=== PATIENT | female | born 1960 | race Caucasian/White ===

== ENCOUNTER 2016-08-30 08:35 | Outpatient (CLI) | payer BC | END 2016-08-30 08:36 | disposition home or self-care (01) | DX: R79.0 Abnormal level of blood mineral (principal); E88.09 Other disorders of plasma-protein metabolism, not elsewhere classified ==

== ENCOUNTER 2017-03-14 11:26 | Emergency (ER) | payer BC ==
[2017-03-14 11:52] VITALS: BP 124/74
[2017-03-14] MEDS ORDERED: KETOROLAC 60 MG/2 ML VIAL IM STA (12:20)
--- NOTE | 2017-03-14 12:22 | ED Physician Documentation ---
PD HPI BACK INJURY - Stated complaint Stated Complaint: BACK INJ - History obtained from History obtained from: Patient - History of Present Illness Location: Lower Type of injury: Fall (onto 2x4's) Where injury occurred: Home Timing - onset: How many weeks ago (1) Timing - duration: Weeks (1) Timing - details: Gradual onset Pain level max: 8 Pain level now: 8 Quality: Pain, Spasm, Aching, Dull Improved by: Rest Worsened by: Moving, Palpating Associated symptoms: No: Fever, Weakness, Numbness, Incontinent of urine, Unable to urinate, Hematuria, Incontinent of stool Contributing factors: No: Anticoagulated, Prior back surgery, Prosthetic joint, Other injury, Work related Similar symptoms before: Has not had sx before Recently seen: Not recently seen Review of Systems Constitutional: denies: Fever, Chills Nose: denies: Rhinorrhea / runny nose, Congestion Throat: denies: Sore throat Cardiac: denies: Chest pain / pressure Respiratory: denies: Cough GI: denies: Nausea, Vomiting, Diarrhea : denies: Dysuria, Frequency, Hesitancy, Unable to Void, Incontinent Skin: denies: Rash Musculoskeletal: denies: Neck pain Neurologic: denies: Focal weakness, Numbness, Headache, Head injury, LOC PD PAST MEDICAL HISTORY - Past Medical History Cardiovascular: Hypertension, High cholesterol, Atrial fibrillation Respiratory: Sleep apnea, CPAP use Endocrine/Autoimmune: Type 2 diabetes GI: None : None HEENT: None Psych: Depression Musculoskeletal: None Derm: None - 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 - Present Medications Home Medications: Ambulatory Orders Medication Instructions Recorded Confirmed Aspirin [Aspir-Anya] 325 mg PO DAILY 02/01/15 03/14/17 Clonazepam [Klonopin] 2 mg PO DAILY 02/01/15 03/14/17 Duloxetine HCl 60 mg PO DAILY 02/01/15 03/14/17 Lisinopril 2.5 mg PO DAILY 02/01/15 03/14/17 Metformin HCl [Glucophage] 850 mg PO BID 02/01/15 03/14/17 Omeprazole [Prilosec] 20 mg PO BID 02/01/15 03/14/17 Pravastatin Sodium 20 mg PO DAILY 02/01/15 03/14/17 FLUoxetine [PROzac] 20 mg PO DAILY 03/14/17 03/14/17 Metoprolol Succinate 50 mg PO DAILY 03/14/17 03/14/17 diazePAM [Valium] 5 - 10 mg PO TID PRN #20 tablet 03/14/17 - Allergies Allergies/Adverse Reactions: Allergies Allergy/AdvReac Type Severity Reaction Status Date / Time amoxicillin trihydrate * Allergy Unknown Verified 03/14/17 11:52 [From Augmentin] potassium clavulanate * Allergy Unknown Verified 03/14/17 11:52 [From Augmentin] PD ED PE NORMAL - Vitals Vital signs reviewed: Yes - General General: Alert and oriented X 3, No acute distress - Neck Neck: Supple, no meningeal sign, No bony TTP - Cardiac Cardiac: RRR, No murmur - Respiratory Respiratory: No respiratory distress, Clear bilaterally - Abdomen Abdomen: Soft, Non tender - Back Back: No spinal TTP, Other (Paraspinal muscle spasm low lumbar bilaterally. No midline tenderness to palpation or percussion) - Derm Derm: Warm and dry - Extremities Extremities: No tenderness to palpate, No edema, No calf tenderness / cord, Other (normal bilateral lower extremity patellar and ankle jerk reflexes. Normal great toe extension bilaterally) - Neuro Neuro: Alert and oriented X 3, No motor deficit, No sensory deficit, Normal speech - Psych Psych: Normal mood, Normal affect Results - Vitals Vitals: Vital Signs - 24 hr 03/14/17 11:50 Temperature 37.2 C Heart Rate 75 Respiratory 16 Rate Blood Pressure 124/74 O2 Saturation 100 Oxygen O2 Source Room air PD MEDICAL DECISION MAKING - ED course Complexity details: re-evaluated patient, considered differential (no cauda equina, no spinal epidural abscess, no fracture, no aortic dissection or evidence of aneursym rupture), d/w patient ED course: Patient is a 56-year-old female who presents to the emergency department with low back pain after falling onto a pile of 2x4s last week. Has been taking Motrin at home, but is still having spasming. States Flexeril and Valium has worked for her in the past. We will trial her on Valium. No evidence of lumbar spine fracture. No midline tenderness. No neurological deficits. Will hold x-rays at this time and treat conservatively. Patient counseled regarding signs and symptoms for which I believe and urgent re-evaluation would be necessary. Patient with good understanding of and agreement to plan and is comfortable going home at this time This document was made in part using voice recognition software. While efforts are made to proofread this document, sound alike and grammatical errors may occur. Feels better after Toradol. Departure - Departure Disposition: 01 Home, Self Care Clinical Impression: Back strain Qualifiers: Encounter type: initial encounter Qualified Code(s): S39.012A - Strain of muscle, fascia and tendon of lower back, initial encounter Condition: Good Instructions: ED Sprain Strain Lumbar Follow-Up: Ivette Leblanc PA-C [Primary Care Provider] - Within 1 week Prescriptions: diazePAM [Valium] 5 - 10 mg PO TID PRN #20 tablet PRN Reason: Spasms Comments: Return if you worsen. This should improve over the next few days. Do not drive or operate heavy machinery while taking the Valium.
[2017-03-14] MEDS ORDERED: KETOROLAC 60 MG/2 ML VIAL ONE (12:26)
== END 2017-03-14 12:45 | disposition home or self-care (01) ==
LOC: ED 11:26
DX: S39.012A Strain of muscle, fascia and tendon of lower back, initial encounter (principal); W18.30XA Fall on same level, unspecified, initial encounter; W22.09XA Striking against other stationary object, initial encounter; Y93.H2 Activity, gardening and landscaping; Y92.007 Garden or yard of unspecified non-institutional (private) residence as the place of occurrence of the external cause; I10 Essential (primary) hypertension; E11.9 Type 2 diabetes mellitus without complications; Z79.84 Long term (current) use of oral hypoglycemic drugs; Z79.82 Long term (current) use of aspirin
CPT/HCPCS: 96372; 99283

== ENCOUNTER 2017-03-20 19:40 | Emergency (ER) | payer BC ==
[2017-03-20] MEDS ORDERED: KETOROLAC 60 MG/2 ML VIAL IM STA (20:18)
[2017-03-20] MEDS ORDERED: DEXAMETHASONE 10 MG/ML VIAL PO STA (20:18)
[2017-03-20] MEDS ORDERED: DEXAMETHASONE 10 MG/ML VIAL ONE (20:51)
[2017-03-20] MEDS ORDERED: KETOROLAC 60 MG/2 ML VIAL ONE (20:51)
[2017-03-20] MEDS ORDERED: CHERRY SYRUP 10 ML UDC PO ONE (20:51)
--- NOTE | 2017-03-20 21:12 | XRAY Preliminary Report ---
Exam: XR SI Joints IMPRESSION: Normal sacroiliac joint radiography. [facility] SITE ID: [id number]
--- NOTE | 2017-03-20 21:14 | XRAY Report ---
EXAM: SACROILIAC JOINT RADIOGRAPHY EXAM DATE: 03/20/2017 08:36 PM. CLINICAL HISTORY: Right sided si pain after falling. COMPARISON: None. TECHNIQUE: 3 views. FINDINGS: Bones: Normal. No fracture or bone lesion. Joints: The sacroiliac joints are normal. Soft Tissues: Normal. IMPRESSION: Normal sacroiliac joint radiography. [facility] Referring Provider Line: [phone] SITE ID: [id number]
--- NOTE | 2017-03-20 21:19 | ED Physician Documentation ---
PD HPI BACK PAIN - Stated complaint Stated Complaint: BACK PX - Chief complaint Chief Complaint: Back Pain - History obtained from History obtained from: Patient - History of Present Illness Timing - onset: How many weeks ago (1) Timing - details: Abrupt onset Location: Lower, Right Quality: Pain, Spasm, Aching Associated symptoms: No: Hematuria Worsened by: Movement Contributing factors: Trauma Similar symptoms before: Work up / diagnostics, Treatment Recently seen: Emergency Dept - Additional information Additional information: Patient is a 56 year old female presenting to the emergency department for low back pain radiating down her right leg. patient states that she fell about a week ago, at that time she was given toradol and valium. Patient states that her pain has persisted so she came in for evaluation. Patient denies any new trauma, no fevers, no chills and no neurological symptoms. Review of Systems Constitutional: denies: Fever, Chills, Myalgias Ears: denies: Ear pain, Drainage/discharge Nose: denies: Congestion Throat: denies: Dental pain / toothache, Oral lesions / sores Cardiac: denies: Chest pain / pressure GI: denies: Abdominal Pain, Abdominal Swelling, Nausea, Vomiting, Constipation, Diarrhea : denies: Dysuria, Frequency, Unable to Void, Incontinent Skin: denies: Rash, Lesions Musculoskeletal: reports: Back pain, Extremity pain Neurologic: denies: Generalized weakness, Focal weakness, Numbness Immunocompromised: denies: Immunocompromised PD PAST MEDICAL HISTORY - Past Medical History Past Medical History: Yes Cardiovascular: Hypertension, High cholesterol, Atrial fibrillation Respiratory: Sleep apnea, CPAP use Endocrine/Autoimmune: Type 2 diabetes GI: None : None HEENT: None Psych: Depression Musculoskeletal: None Derm: None - Past Surgical History 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 - Present Medications Home Medications: Ambulatory Orders Medication Instructions Recorded Confirmed Aspirin [Aspir-Anya] 325 mg PO DAILY 02/01/15 03/20/17 Clonazepam [Klonopin] 2 mg PO DAILY 02/01/15 03/20/17 Duloxetine HCl 60 mg PO DAILY 02/01/15 03/20/17 Lisinopril 2.5 mg PO DAILY 02/01/15 03/20/17 Metformin HCl [Glucophage] 850 mg PO BID 02/01/15 03/20/17 Omeprazole [Prilosec] 20 mg PO BID 02/01/15 03/20/17 Pravastatin Sodium 20 mg PO DAILY 02/01/15 03/20/17 FLUoxetine [PROzac] 20 mg PO DAILY 03/14/17 03/20/17 Metoprolol Succinate 50 mg PO DAILY 03/14/17 03/20/17 diazePAM [Valium] 5 - 10 mg PO TID PRN #20 tablet 03/14/17 03/20/17 Cyclobenzaprine [Flexeril] 10 mg PO DAILY #10 tablet 03/20/17 - Allergies Allergies/Adverse Reactions: Allergies Allergy/AdvReac Type Severity Reaction Status Date / Time amoxicillin trihydrate * Allergy Unknown Verified 03/20/17 19:53 [From Augmentin] potassium clavulanate * Allergy Unknown Verified 03/20/17 19:53 [From Augmentin] - Social History Does the pt smoke?: No Smoking Status: Never smoker Does the pt have substance abuse?: No PD ED PE NORMAL - Vitals Vital signs reviewed: Yes - General General: Alert and oriented X 3, No acute distress - HEENT HEENT: Atraumatic - Cardiac Cardiac: RRR, No murmur - Respiratory Respiratory: No respiratory distress - Abdomen Abdomen: Soft, Non tender, Non distended - Derm Derm: Normal color, Warm and dry, No rash - Neuro Neuro: Alert and oriented X 3, No motor deficit, No sensory deficit, Normal speech - Psych Psych: Normal mood PD ED PE EXPANDED - Extremities Extremities: Right hip (tenderness over right SI joint, ) - Neuro Neuro: Normal Sensation, Normal gait, Other (straight leg only positive on right ). No: Abnormal sensation Results - Vitals Vitals: Vital Signs - 24 hr 03/20/17 03/20/17 19:46 21:31 Temperature 36.4 C L Heart Rate 67 60 Respiratory 20 18 Rate Blood Pressure 110/65 102/67 O2 Saturation 98 99 Oxygen O2 Source Room air - Rads (name of study) si joint Radiology: Final report received (no acute abnormality) PD MEDICAL DECISION MAKING - ED course Complexity details: reviewed old records, reviewed results, re-evaluated patient , considered differential, d/w patient ED course: Patient was seen and examined at bedside. patient was treated with toradol and decadron. imaging was ordered. When patient returned the results were reviewed. there was no acute fracture or dislocation or bony abnormality. Patient had no neurological deficits and required no further work up at this time. patient was stable for discharge with outpatient follow up. Departure - Departure Disposition: 01 Home, Self Care Clinical Impression: Sciatica Condition: Good Instructions: ED Sciatica, ED Exercises Lumbar Muscles Follow-Up: Ivette Leblanc PA-C [Primary Care Provider] - As Needed Prescriptions: Cyclobenzaprine [Flexeril] 10 mg PO DAILY #10 tablet Comments: Your diagnostics today were within normal limits. there was no acute fracture or dislocation. It is important to try to stay active and work on stretching your lower back and upper leg. You can try ice or heat as well as motrin and tylenol. You can take the flexeril at night but do not take it with any sedatives, including alcohol or drive while taking it. You should follow up with your pmd for re-evaluation. Discharge Date/Time: 03/20/17 21:31
[2017-03-20 21:32] VITALS: BP 102/67
== END 2017-03-20 21:31 | disposition home or self-care (01) ==
LOC: ED 19:40
DX: M54.31 Sciatica, right side (principal); I10 Essential (primary) hypertension; Z79.82 Long term (current) use of aspirin
CPT/HCPCS: 72202; 96372; 99283; A9270

== ENCOUNTER 2017-04-01 11:22 | Outpatient (CLI) | payer BC | END 2017-04-01 11:23 | disposition home or self-care (01) | LOC: LAB.R 11:22 | PROVIDERS: ATTEND Nurse Practitioner Primary Care | DX: N39.0 Urinary tract infection, site not specified (principal) | CPT/HCPCS: 87086 ==

== ENCOUNTER 2017-09-08 10:18 | Outpatient (CLI) | payer BC ==
--- NOTE | 2017-09-09 20:05 | Mammography Report ---
DATE OF SERVICE: 09/08/2017 DIGITAL SCREENING MAMMOGRAM: 09/08/2017 CLINICAL INDICATION: A 56-year-old with history of late childbearing for screening. COMPARISON: 06/2016, 09/2014, 07/2013, 02/2012, 01/2011, 11/2009. TECHNIQUE: Routine CC and MLO projections were obtained of the breasts. The breasts demonstrate scattered fibroglandular densities bilaterally. Coarse and punctate, typically benign calcifications are present. No suspicious masses, clustered microcalcifications, or regions of architectural distortion are identified. IMPRESSION: Benign findings. RECOMMENDATIONS: Routine annual screening unless otherwise clinically indicated. BIRADS category 2 benign findings. STANDARD QUALIFYING STATEMENTS 1. This examination was reviewed with the aid of Computed-Aided Detection (CAD). 2. A negative or benign imaging report should not delay biopsy if clinically suspicious findings are present. Consider surgical consultation if warranted. More than 5% of cancers are not identified by imaging. 3. Dense breasts may obscure an underlying neoplasm. TD: 09/09/2017 21:04
== END 2017-09-08 10:19 | disposition home or self-care (01) ==
LOC: DI 10:18
PROVIDERS: ATTEND Physician Assistant Medical
DX: Z12.31 Encounter for screening mammogram for malignant neoplasm of breast (principal)
CPT/HCPCS: 77067

== ENCOUNTER 2017-10-06 13:15 | Outpatient (CLI) | payer BC | END 2017-10-06 13:16 | disposition home or self-care (01) | LOC: SC 13:15 | PROVIDERS: ATTEND Nurse Practitioner Family | DX: G47.33 Obstructive sleep apnea (adult) (pediatric) (principal) | CPT/HCPCS: 99212; 99214 ==

== ENCOUNTER 2017-10-13 08:59 | Outpatient (CLI) | payer BC ==
[2017-10-13 18:24] LABS: BASOPHILS # (AUTO) 0.1 10^3/uL (0.0-0.1); EOSINOPHILS # (AUTO) 0.1 10^3/uL (0.0-0.7); EOSINOPHILS % (AUTO) 1.3 %; HGB - HEMOGLOBIN 11.5 g/dL (12.0-16.0); LYMPHOCYTES # (AUTO) 2.9 10^3/uL (1.5-3.5); LYMPHOCYTES % (AUTO) 28.5 %; MEAN CORPUSCULAR HEMOGLOBIN 26.1 pg (27.0-31.0); MEAN CORPUSCULAR HGB CONC 31.8 g/dL (32.0-36.0); MEAN CORPUSCULAR VOLUME 82.1 fL (81.0-99.0); MEAN PLATELET VOLUME 7.1 fL (7.9-10.8); MONOCYTES # (AUTO) 0.6 10^3/uL (0.0-1.0); MONOCYTES % (AUTO) 5.9 %; NEUTROPHILS # (AUTO) 6.4 10^3/uL (1.5-6.6); NEUTROPHILS % (AUTO) 63.3 %; PLT - PLATELET COUNT 482 10^3/uL (130-450); RED BLOOD COUNT 4.42 10^6/uL (4.20-5.40); RED CELL DISTRIBUTION WIDTH 14.7 % (12.0-15.0); WHITE BLOOD COUNT 10.1 x10^3/uL (4.8-10.8)
[2017-10-13 18:52] LABS: ALBUMIN 3.7 g/dL (3.2-5.5); ALBUMIN/GLOBULIN RATIO 1.1 (1.0-2.2); ALKALINE PHOSPHATASE 78 IU/L (42-121); ALT ALANINE AMINOTRANSFERASE 23 IU/L (10-60); AST ASPARTATE AMINOTRANSFERASE 25 IU/L (10-42); BILIRUBIN,TOTAL 0.4 mg/dL (0.2-1.0); BUN - BLOOD UREA NITROGEN 15 mg/dL (6-20); CALCIUM 8.7 mg/dL (8.5-10.3); CARBON DIOXIDE - CO2 22 mmol/L (21-32); CHLORIDE 103 mmol/L (101-111); CHOL/HDL RATIO 2.8 (<4.4); CHOLESTEROL 163 mg/dL; GFR - MDRD 57 (>89); GLUCOSE 91 mg/dL (70-100); HDL CHOLESTEROL 58 mg/dL; LDL CHOLESTEROL,CALCULATED 74 mg/dL; LDL/HDL RATIO 1.3 (<4.4); SODIUM 137 mmol/L (135-145); TOTAL PROTEIN 7.2 g/dL (6.7-8.2); VLDL CHOLESTEROL 31 mg/dL
[2017-10-13 19:37] LABS: HEMOGLOBIN A1C 0.49 g/dL; HEMOGLOBIN A1C % 5.9 % (4.6-6.2)
== END 2017-10-13 09:00 | disposition home or self-care (01) ==
LOC: LAB.F 08:59
PROVIDERS: ATTEND Internal Medicine
DX: Z00.00 Encounter for general adult medical examination without abnormal findings (principal); R60.9 Edema, unspecified; E55.9 Vitamin D deficiency, unspecified; Z79.899 Other long term (current) drug therapy; E11.9 Type 2 diabetes mellitus without complications; I48.0 Paroxysmal atrial fibrillation
CPT/HCPCS: 36415; 80053; 80061; 82306; 83036; 83721; 84443; 85025

== ENCOUNTER 2018-03-04 08:54 | Emergency (ER) | payer BC ==
--- NOTE | 2018-03-04 09:25 | ED Physician Documentation ---
History of Present Illness - Stated complaint Stated Complaint: LIGHTHEADED/HIGH PULSE - Chief complaint Chief Complaint: Cardiac - History obtained from History obtained from: Patient - History of Present Illness Timing: Today - Additonal information Additional information: 57-year-old female got ready for work this morning and on her way walking to work she developed lightheadedness and dizziness associated with palpitations and some dyspnea. She recognizes his symptoms similar to what she has had previously with atrial fibrillation and has come to the hospital. Laying down on the gurney she feels much improved but continues to have a rapid heart rate. She states that she does not know of any specific trigger for this episode of atrial fibrillation. She has not been ill recently. She does note a lot of stress in her life and she believes this is likely the culprit. She denies any alcohol use recently or URI symptoms. Review of Systems Constitutional: denies: Fever Eyes: denies: Decreased vision Ears: denies: Ear pain Nose: denies: Rhinorrhea / runny nose, Congestion Throat: denies: Sore throat Cardiac: reports: Palpitations. denies: Chest pain / pressure Respiratory: reports: Dyspnea. denies: Cough GI: denies: Abdominal Pain, Nausea, Vomiting : denies: Dysuria, Frequency Skin: denies: Rash Musculoskeletal: denies: Neck pain, Back pain, Extremity pain Neurologic: denies: Generalized weakness, Focal weakness, Numbness Psychiatric: reports: Depressed. 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 - Present Medications Home Medications: Ambulatory Orders Medication Instructions Recorded Confirmed Duloxetine HCl 60 mg PO DAILY 02/01/15 05/22/17 Metformin HCl [Glucophage] 850 mg PO BID 02/01/15 05/22/17 Omeprazole [Prilosec] 20 mg PO BID 02/01/15 05/22/17 Pravastatin Sodium 20 mg PO DAILY 02/01/15 05/22/17 clonazePAM [Klonopin] 2 mg PO DAILY 02/01/15 05/22/17 Nitroglycerin [Nitrostat] 0.4 mg SL Q5MIN PRN #100 tablet 05/23/17 diltiaZEM CD [Cardizem Cd] 120 mg PO DAILY #30 capsule 05/23/17 Apixaban [Eliquis] 5 mg PO 03/04/18 Flecainide [Tambocar] 50 mg PO Q12H 03/04/18 03/04/18 Fluoxetine HCl [Prozac] 10 mg 03/04/18 Metoprolol Succinate 50 mg PO DAILY #20 tab.er.24h 03/04/18 - Allergies Allergies/Adverse Reactions: Allergies Allergy/AdvReac Type Severity Reaction Status Date / Time amoxicillin trihydrate * Allergy Unknown Verified 03/04/18 09:15 [From Augmentin] potassium clavulanate * Allergy Unknown Verified 03/04/18 09:15 [From Augmentin] - Social History Does the pt smoke?: No Smoking Status: Never smoker Does the pt have substance abuse?: No - POLST Patient has POLST: No POLST Status: Full Code PD ED PE NORMAL - Vitals Vital signs reviewed: Yes (tachy and hypertensive) - General General: Alert and oriented X 3, Well developed/nourished, Other (mildly anxious ) - HEENT HEENT: Atraumatic, PERRL, EOMI - Neck Neck: Supple, no meningeal sign, No bony TTP - Cardiac Cardiac: No murmur, Other (tachy and irregular ) - Respiratory Respiratory: No respiratory distress, Clear bilaterally - Abdomen Abdomen: Soft, Non tender - Back Back: No CVA TTP, No spinal TTP - Derm Derm: Normal color, Warm and dry, No rash - Extremities Extremities: No deformity, No edema - Neuro Neuro: Alert and oriented X 3, credit investigator 2-12 intact, No motor deficit, No sensory deficit, Normal speech Eye Opening: Spontaneous Motor: Obeys Commands Verbal: Oriented GCS Score: 15 - Psych Psych: Normal mood, Normal affect Results - Vitals Vitals: Vital Signs - 24 hr 03/04/18 03/04/18 03/04/18 08:59 09:43 11:24 Temperature 36.4 C L Heart Rate 123 H 115 H 77 Respiratory 18 16 16 Rate Blood Pressure 140/97 H 133/90 H 112/69 O2 Saturation 97 95 03/04/18 03/04/1803/04/18 13:16 14:13 14:15 Temperature Heart Rate 118 H 130 H 109 H Respiratory 26 H 25 H 22 Rate Blood Pressure 142/82 H 134/97 H 117/83 H O2 Saturation 94 95 94 03/04/18 03/04/18 03/04/18 14:16 14:50 14:57 Temperature Heart Rate 100 90 83 Respiratory 22 18 16 Rate Blood Pressure 135/85 H 119/88 H 123/65 O2 Saturation 97 97 98 Oxygen O2 Source Room air - EKG (time done) 0903 Rate: Rate (enter#) (129) Rhythm: Atrial fibrillation Compare to prior EKG: Changed from prior EKG (SPT 05-22-17 ST depression has occurred. ) Computer interpretation: Agree with computer - Labs Labs: Laboratory Tests 03/04/18 03/04/18 03/04/18 09:30 09:30 09:30 WBC 9.1 RBC 4.34 Hgb 11.4 L Hct 34.7 L MCV 79.9 L MCH 26.2 L MCHC 32.8 RDW 14.8 Plt Count 501 H MPV 6.5 L Neut # (Auto) 5.3 Lymph # (Auto) 3.0 [place] # (Auto) 0.6 Eos # (Auto) 0.1 Baso # (Auto) 0.1 Absolute Nucleated RBC 0.00 Nucleated RBC % 0.0 Sodium 138 Potassium 3.8 Chloride 105 Carbon Dioxide 21 Anion Gap 12.0 BUN 13 Creatinine 0.9 Estimated GFR (MDRD) 65 L Glucose 125 H Calcium 8.9 Total Bilirubin 0.4 AST 27 ALT 22 Alkaline Phosphatase 83 Troponin I < 0.04 Total Protein 7.1 Albumin 3.2 Globulin 3.9 Albumin/Globulin Ratio 0.8 L Lipase 35 Urine Color Urine Clarity Urine pH Ur Specific [place] Urine Protein Urine Glucose (UA) Urine Ketones Urine Occult Blood Urine Nitrite Urine Bilirubin Urine Urobilinogen Ur Leukocyte Esterase Ur Microscopic Review Urine Culture Comments 03/04/18 10:55 WBC RBC Hgb Hct MCV MCH MCHC RDW Plt Count MPV Neut # (Auto) Lymph # (Auto) [place] # (Auto) Eos # (Auto) Baso # (Auto) Absolute Nucleated RBC Nucleated RBC % Sodium Potassium Chloride Carbon Dioxide Anion Gap BUN Creatinine Estimated GFR (MDRD) Glucose Calcium Total Bilirubin AST ALT Alkaline Phosphatase Troponin I Total Protein Albumin Globulin Albumin/Globulin Ratio Lipase Urine Color YELLOW Urine Clarity CLEAR Urine pH 6.0 Ur Specific [place] 1.025 Urine Protein NEGATIVE Urine Glucose (UA) NEGATIVE Urine Ketones NEGATIVE Urine Occult Blood NEGATIVE Urine Nitrite NEGATIVE Urine Bilirubin NEGATIVE Urine Urobilinogen 0.2 (NORMAL) Ur Leukocyte Esterase NEGATIVE Ur Microscopic Review NOT INDICATED Urine Culture Comments NOT INDICATED Procedures - IVC sono (time) 1100 Bedside IVC sono: IVC measures (cm) (0.98), IVC collapsed c insp (cm) (complete) , Dehydration (est 1 liter deficit) PD MEDICAL DECISION MAKING - ED course Complexity details: reviewed results, re-evaluated patient, considered differential, d/w patient ED course: 57-year-old female with A. fib with RVR is administered diltiazem intravenously 20 mg with reduction in her heart rate and conversion to sinus rhythm. This did not hold long and she required a second 25 mg dose as well. This did slow her rate but this sped back up. She was eventually administered metoprolol 5 mg 2 doses intravenously. This slowed her heart and she stayed stable. She is requested a prescription for the metoprolol succinate. She has been on this medication previously and stopped for side effects of the medication causing some fatigue. She would rather use the metoprolol then be placed into the hospital on diltiazem drip. - Sepsis Event Vital Signs: Vital Signs - 24 hr 03/04/18 03/04/18 03/04/18 08:59 09:43 11:24 Temperature 36.4 C L Heart Rate 123 H 115 H 77 Respiratory 18 16 16 Rate Blood Pressure 140/97 H 133/90 H 112/69 O2 Saturation 97 95 03/04/18 03/04/18 03/04/18 13:16 14:13 14:15 Temperature Heart Rate 118 H 130 H 109 H Respiratory 26 H 25 H 22 Rate Blood Pressure 142/82 H 134/97 H 117/83 H O2 Saturation 94 95 94 03/04/18 03/04/18 03/04/18 14:16 14:50 14:57 Temperature Heart Rate 100 90 83 Respiratory 22 18 16 Rate Blood Pressure 135/85 H 119/88 H 123/65 O2 Saturation 97 97 98 Oxygen O2 Source Room air Departure - Departure Disposition: 01 Home, Self Care Clinical Impression: Atrial fibrillation with RVR Condition: Stable Instructions: ED Afib Follow-Up: Good,Ivette B, PA-C [Primary Care Provider] - Prescriptions: Metoprolol Succinate 50 mg PO DAILY #20 tab.er.24h Discharge Date/Time: 03/04/18 15:15
[2018-03-04] MEDS ORDERED: diltiaZEM INJ 5 MG/ML VIAL IVP STA ×3 (09:26→13:07)
[2018-03-04 09:47] LABS: BASOPHILS # (AUTO) 0.1 10^3/uL (0.0-0.1); BASOPHILS % (AUTO) 1.5 %; EOSINOPHILS # (AUTO) 0.1 10^3/uL (0.0-0.7); EOSINOPHILS % (AUTO) 1.6 %; HGB - HEMOGLOBIN 11.4 g/dL (12.0-16.0); LYMPHOCYTES % (AUTO) 32.7 %; MEAN CORPUSCULAR HEMOGLOBIN 26.2 pg (27.0-31.0); MEAN CORPUSCULAR HGB CONC 32.8 g/dL (32.0-36.0); MEAN CORPUSCULAR VOLUME 79.9 fL (81.0-99.0); MEAN PLATELET VOLUME 6.5 fL (7.9-10.8); MONOCYTES # (AUTO) 0.6 10^3/uL (0.0-1.0); MONOCYTES % (AUTO) 6.4 %; NEUTROPHILS # (AUTO) 5.3 10^3/uL (1.5-6.6); NEUTROPHILS % (AUTO) 57.8 %; PLT - PLATELET COUNT 501 10^3/uL (130-450); RED BLOOD COUNT 4.34 10^6/uL (4.20-5.40); RED CELL DISTRIBUTION WIDTH 14.8 % (12.0-15.0); WHITE BLOOD COUNT 9.1 x10^3/uL (4.8-10.8)
[2018-03-04] MEDS ORDERED: MAGNESIUM SULFATE 1 GM/2 ML VIAL IVP STA (09:54)
[2018-03-04 10:01] LABS: ALBUMIN 3.2 g/dL (3.2-5.5); ALBUMIN/GLOBULIN RATIO 0.8 (1.0-2.2); BILIRUBIN,TOTAL 0.4 mg/dL (0.2-1.0); CALCIUM 8.9 mg/dL (8.5-10.3); CREATININE 0.9 mg/dL (0.4-1.0); TOTAL PROTEIN 7.1 g/dL (6.7-8.2)
[2018-03-04] MEDS ORDERED: MAGNESIUM SULFATE 1 GM in SODIUM CHLORIDE 0.9% 50 ML IV ONE (11:00)
[2018-03-04 11:04] LABS: BILIRUBIN,URINE NEGATIVE (NEGATIVE); CLARITY,URINE CLEAR (CLEAR); GLUCOSE, URINE (UA) NEGATIVE (NEGATIVE); KETONES,URINE (UA) NEGATIVE (NEGATIVE); LEUKOCYTE ESTERASE, URINE NEGATIVE (NEGATIVE); NITRITE,URINE NEGATIVE (NEGATIVE); OCCULT BLOOD,URINE NEGATIVE (NEGATIVE); PROTEIN,URINE NEGATIVE (NEGATIVE); UROBILINOGEN,URINE 0.2 (NORMAL) E.U./dL (NORMAL)
[2018-03-04] MEDS ORDERED: SODIUM CHLORIDE 0.9% 1,000 ML IV ONE (11:08)
[2018-03-04] MEDS ORDERED: METOPROLOL 5 MG/5 ML VIAL IVP STA (14:03)
[2018-03-04] MEDS: METOPROLOL 5 MG/5 ML VIAL IVP STA (14:47)
[2018-03-04 14:57] VITALS: BP 123/65
== END 2018-03-04 15:15 | disposition home or self-care (01) ==
LOC: ED 08:54
DX: I48.91 Unspecified atrial fibrillation (principal); I48.92 Unspecified atrial flutter; I10 Essential (primary) hypertension; E78.00 Pure hypercholesterolemia, unspecified; E86.0 Dehydration
CPT/HCPCS: 36415; 80053; 81003; 83690; 84484; 85025; 93005; 96365; 96375; 96376; 99284; J7040; 81001; 87086

== ENCOUNTER 2018-10-11 09:43 | Emergency (ER) | payer BC ==
[2018-10-11 09:48] VITALS: BP 143/95
[2018-10-11] MEDS ORDERED: DEXAMETHASONE 10 MG/ML VIAL PO STA (10:24)
[2018-10-11] MEDS ORDERED: IPRATROPIUM/ALBUTEROL 3 ML NEB INH STA (10:24)
--- NOTE | 2018-10-11 10:27 | ED Physician Documentation ---
PD HPI URI - Stated complaint Stated Complaint: SOA - Chief complaint Chief Complaint: Resp - History obtained from History obtained from: Patient, Family - History of Present Illness Timing - onset: How many days ago (5) Timing duration: Days (5) Timing details: Gradual onset, Still present Associated symptoms: Nasal congestion, Rhinorrhea, Sore throat, Dry cough, Dyspnea Improves by: Rest, Medication Worsened by: Activity Similar symptoms before: Diagnosis (bronchitis) Recently seen: Not recently seen - Additional information Additional information: 58-year-old female relates that she has had 2 prior respiratory illnesses since April of this year both lasting about 3 weeks and both with cough and congestion. Those both resolved. Over the last 5 days she has developed a cough and congestion and when she got short of breath climbing up the stairs today she felt it light to come to the emergency department. She has used an inhaler previously she does not currently have an inhaler. Review of Systems Constitutional: denies: Fever, Chills Eyes: denies: Decreased vision Ears: denies: Ear pain Nose: reports: Rhinorrhea / runny nose, Congestion Throat: denies: Sore throat Cardiac: denies: Chest pain / pressure, Palpitations Respiratory: reports: Dyspnea, Cough, Wheezing GI: denies: Abdominal Pain, Nausea, Vomiting : denies: Dysuria, Frequency PD PAST MEDICAL HISTORY - Past Medical History Cardiovascular: Hypertension, High cholesterol, Atrial fibrillation, Other Respiratory: Sleep apnea, CPAP use Endocrine/Autoimmune: Other GI: None, GERD, Hiatal hernia : None, Other HEENT: None Psych: Depression Musculoskeletal: None, Osteoarthritis Derm: None - Past Surgical History 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 - Present Medications Home Medications: Ambulatory Orders Medication Instructions Recorded Confirmed Duloxetine HCl 60 mg PO DAILY 02/01/15 10/11/18 Metformin HCl [Glucophage] 850 mg PO BID 02/01/15 10/11/18 Omeprazole [Prilosec] 20 mg PO BID 02/01/15 10/11/18 Pravastatin Sodium 20 mg PO DAILY 02/01/15 10/11/18 clonazePAM [Klonopin] 2 mg PO DAILY 02/01/15 10/11/18 Nitroglycerin [Nitrostat] 0.4 mg SL Q5MIN PRN #100 tablet 05/23/17 10/11/18 [id number] CD [Cardizem Cd] 120 mg PO DAILY #30 capsule 05/23/17 10/11/18 Apixaban [Eliquis] 5 mg PO DAILY 03/04/18 10/11/18 Flecainide [Tambocar] 50 mg PO Q12H 03/04/18 10/11/18 Fluoxetine HCl [Prozac] 10 mg PO DAILY 03/04/18 10/11/18 Albuterol Sulf [Ventolin Hfa 1 - 2 puffs INH Q4HR PRN #1 inhaler 10/11/18 Inhaler] Cefdinir 300 mg PO BID #20 capsule 10/11/18 - Allergies Allergies/Adverse Reactions: Allergies Allergy/AdvReac Type Severity Reaction Status Date / Time amoxicillin trihydrate * Allergy Unknown Verified 03/04/18 09:15 [From Augmentin] potassium clavulanate * Allergy Unknown Verified 10/11/18 09:48 [From Augmentin] - Social History Does the pt smoke?: No Smoking Status: Never smoker Does the pt have substance abuse?: No - POLST Patient has POLST: No POLST Status: Full Code PD ED PE NORMAL - Vitals Vital signs reviewed: Yes (tachy and hypertensive) - General General: Alert and oriented X 3, No acute distress, Well developed/nourished - HEENT HEENT: Atraumatic, PERRL, EOMI, Pharynx benign, Other (The left TM is clear the right is inflamed with distortion of the landmarks. dry mucous membranes ) - Neck Neck: Supple, no meningeal sign, No bony TTP - Cardiac Cardiac: RRR, No murmur - Respiratory Respiratory: No respiratory distress, Other (diminished breath sounds bilaterally) - Abdomen Abdomen: Soft, Non tender - Back Back: No CVA TTP, No spinal TTP - Derm Derm: Normal color, Warm and dry, No rash - Extremities Extremities: No deformity, No edema - Neuro Neuro: Alert and oriented X 3, monitoring coordinator 2-12 intact, No motor deficit, No sensory deficit, Normal speech Eye Opening: Spontaneous Motor: Obeys Commands Verbal: Oriented GCS Score: 15 - Psych Psych: Normal mood, Normal affect Results - Vitals Vitals: Vital Signs - 24 hr 10/11/18 10/11/18 09:46 10:50 Temperature 35.8 C L Heart Rate 104 H 92 Respiratory 18 16 Rate Blood Pressure 143/95 H O2 Saturation 98 Oxygen O2 Source Room air - Rads (name of study) 2 veiw chest Radiology: Prelim report reviewed (Impression: No new focal lung consolidation or pleural effusions. No significant change.), EMP read indepedently, See rad report PD MEDICAL DECISION MAKING - ED course Complexity details: reviewed results, re-evaluated patient, considered di fferential, d/w patient, d/w family ED course: 58-year-old female with cough and congestion has a component of reactive airway as well she has otitis on exam and she is administered a DuoNeb treatment with improvement she is administered dexamethasone 10 mg orally and we will place her on some antibiotic. Departure - Departure Disposition: Home, Self Care Clinical Impression: Otitis media Qualifiers: Otitis media type: suppurative Chronicity: acute Laterality: right Recurrence: not specified as recurrent Spontaneous tympanic membrane rupture: without spontaneous rupture Qualified Code(s): H66.001 - Acute suppurative otitis media without spontaneous rupture of ear drum, right ear Instructions: ED Otitis Media Acute Adult Follow-Up: Ivette Leblanc PA-C [Primary Care Provider] - Prescriptions: Albuterol Sulf [Ventolin Hfa Inhaler] 1 - 2 puffs INH Q4HR PRN #1 inhaler PRN Reason: Shortness Of Air/Wheezing Cefdinir 300 mg PO BID #20 capsule Forms: Activity restrictions
--- NOTE | 2018-10-11 11:28 | XRAY Report ---
Reason: cough dsypnea Procedure Date: 10/11/2018 Accession Number: [id number] / [id number] Procedure: XR - Chest 2 View X-Ray CPT Code: 71819 FULL RESULT: EXAM: CHEST RADIOGRAPHY EXAM DATE: 10/11/2018 10:41 AM. CLINICAL HISTORY: Cough dyspnea. COMPARISON: CHEST 2 VIEW PA/LAT 02/15/2013 4:37 PM. TECHNIQUE: 2 views. FINDINGS: Lungs/Pleura: No focal lung consolidation. No pleural effusion. No pneumothorax. Mediastinum: Cardiac silhouette size appears unremarkable. Atherosclerotic vascular calcification. Other: Degenerative change of the spine and dextroconvex curvature at the lower thoracic spine again noted. IMPRESSION: No new focal lung consolidation or pleural effusions. No significant change. RADIA
== END 2018-10-11 12:20 | disposition home or self-care (01) ==
LOC: ED 09:43
DX: H66.001 Acute suppurative otitis media without spontaneous rupture of ear drum, right ear (principal); J45.909 Unspecified asthma, uncomplicated; I10 Essential (primary) hypertension; I48.91 Unspecified atrial fibrillation; Z79.01 Long term (current) use of anticoagulants
CPT/HCPCS: 71046; 94640; 99283

== ENCOUNTER 2018-12-23 09:13 | Outpatient (CLI) | payer BC | END 2018-12-23 09:14 | disposition home or self-care (01) | LOC: SC 09:13 | PROVIDERS: ATTEND Nurse Practitioner Family | DX: G47.33 Obstructive sleep apnea (adult) (pediatric) (principal); F43.9 Reaction to severe stress, unspecified; F32.9 Major depressive disorder, single episode, unspecified | CPT/HCPCS: 99212; 99214 ==

== ENCOUNTER 2019-01-21 08:51 | Outpatient (CLI) | payer BC ==
--- NOTE | 2019-01-21 12:58 | DEXA Report ---
Reason: MENOPAUSAL STATE,MEDICATION USE,HYPOVITAMINOSIS D Procedure Date: 01/21/2019 Accession Number: [id number] / [id number] Procedure: DEX - Dexa Spine and/or Hip CPT Code: FULL RESULT: EXAM: Dexa Spine and/or Hip DATE: 01/21/2019 9:32 AM CLINICAL HISTORY: MENOPAUSAL STATE,MEDICATION USE,HYPOVITAMINOSIS D TECHNIQUE: Dual energy x-ray absorptiometry (DXA) was performed on a [employer] System. Regions measured are the AP Spine, femoral neck, and if needed forearm. COMPARISON: None. In accordance with the International Society for Clinical Densitometry (ISCD) guidelines, data from previous exams may be reanalyzed using current recommendations and techniques. This is done to allow a more accurate basis for comparison with the current study. FINDINGS: The data for the lumbar spine is as follows: BMD (g/cm/cm) T-SCORE Z-SCORE REGION L1 0.858 -2.3 -2.5 L2 1.041 -1.3 -1.5 L3 1.124 -0.6 -0.8 L4 1.208 0.1 -0.1 TOTAL 1.071 -0.9 -1.1 NOTE: All evaluable vertebrae are used for classification The data for the hip is as follows: BMD (g/cm/cm) T-SCORE Z-SCORE REGION Neck 0.963 -0.5 -0.2 TOTAL 1.123 0.9 0.8 NOTE: The femoral neck or total proximal femur, whichever is lowest, is used for classification. IMPRESSION: THE WHO CLASSIFICATION BASED ON THE INTERNATIONAL REFERENCE STANDARD IS NORMAL. THE FRACTURE RISK IS NOT INCREASED. RECOMMENDATION: Patients with diagnosis of osteoporosis or osteopenia should have regular bone mineral density assessment. For those eligible for Medicare, routine testing is allowed once every 2 years. Testing frequency can be increased for patients who have rapidly progressing disease or for those who are receiving medical therapy to restore bone mass. COMMENT: World Health Organization (WHO) definitions for osteoporosis and osteopenia: NORMAL BMD: T-score at -1.0 or higher, fracture risk is low OSTEOPENIA BMD: T-score between -1.0 and -2.5, fracture risk is increased. OSTEOPOROSIS BMD: T-score at -2.5 or lower, fracture risk is high. National Osteoporosis Foundation recommends: 1. Obtain adequate dietary calcium (at least 1200 mg per day) and vitamin D (400-800 international units per day). 2. Participate, as appropriate, in regular weightbearing and muscle-strengthening exercise. 3. Avoid tobacco use and reduce alcohol and caffeine intake. 4. For more detailed information see the website at www.NOF.org.
== END 2019-01-21 08:52 | disposition home or self-care (01) ==
LOC: DI 08:51
PROVIDERS: ATTEND Nurse Practitioner
DX: Z78.0 Asymptomatic menopausal state (principal); E55.9 Vitamin D deficiency, unspecified; Z79.899 Other long term (current) drug therapy
CPT/HCPCS: 77080

== ENCOUNTER 2019-02-01 07:22 | Outpatient (CLI) | payer BC ==
[2019-02-01 08:00] LABS: BASOPHILS # (AUTO) 0.1 10^3/uL (0.0-0.1); BASOPHILS % (AUTO) 0.6 %; EOSINOPHILS # (AUTO) 0.2 10^3/uL (0.0-0.7); EOSINOPHILS % (AUTO) 2.2 %; HGB - HEMOGLOBIN 10.9 g/dL (12.0-16.0); LYMPHOCYTES # (AUTO) 2.9 10^3/uL (1.5-3.5); LYMPHOCYTES % (AUTO) 29.8 %; MEAN CORPUSCULAR HEMOGLOBIN 24.5 pg (27.0-31.0); MEAN CORPUSCULAR HGB CONC 32.2 g/dL (32.0-36.0); MEAN CORPUSCULAR VOLUME 76.1 fL (81.0-99.0); MEAN PLATELET VOLUME 6.4 fL (7.9-10.8); MONOCYTES # (AUTO) 0.6 10^3/uL (0.0-1.0); MONOCYTES % (AUTO) 6.2 %; NEUTROPHILS # (AUTO) 5.9 10^3/uL (1.5-6.6); NEUTROPHILS % (AUTO) 61.2 %; PLT - PLATELET COUNT 496 10^3/uL (130-450); RED BLOOD COUNT 4.44 10^6/uL (4.20-5.40); RED CELL DISTRIBUTION WIDTH 15.7 % (12.0-15.0); WHITE BLOOD COUNT 9.6 x10^3/uL (4.8-10.8)
[2019-02-01 08:05] LABS: HB2 TOTAL 11.4 g/dL; HEMOGLOBIN A1C 0.49 g/dL; HEMOGLOBIN A1C % 6.1 % (4.6-6.2)
[2019-02-01 08:09] LABS: ALBUMIN 3.6 g/dL (3.2-5.5); ALKALINE PHOSPHATASE 78 IU/L (42-121); ALT ALANINE AMINOTRANSFERASE 21 IU/L (10-60); AST ASPARTATE AMINOTRANSFERASE 28 IU/L (10-42); BILIRUBIN,TOTAL 0.5 mg/dL (0.2-1.0); BUN - BLOOD UREA NITROGEN 14 mg/dL (6-20); CARBON DIOXIDE - CO2 22 mmol/L (21-32); CHLORIDE 104 mmol/L (101-111); CHOL/HDL RATIO 2.6 (<4.4); CHOLESTEROL 165 mg/dL; CREATININE 0.9 mg/dL (0.4-1.0); GFR - MDRD 65 (>89); GLUCOSE 108 mg/dL (70-100); HDL CHOLESTEROL 63 mg/dL; LDL CHOLESTEROL,CALCULATED 72 mg/dL; LDL/HDL RATIO 1.1 (<4.4); SODIUM 139 mmol/L (135-145); TOTAL PROTEIN 7.3 g/dL (6.7-8.2); VLDL CHOLESTEROL 30 mg/dL
== END 2019-02-01 07:23 | disposition home or self-care (01) ==
LOC: LAB 07:22
PROVIDERS: ATTEND Nurse Practitioner
DX: I48.0 Paroxysmal atrial fibrillation (principal); E78.2 Mixed hyperlipidemia; E11.9 Type 2 diabetes mellitus without complications; E55.9 Vitamin D deficiency, unspecified; Z79.899 Other long term (current) drug therapy
CPT/HCPCS: 36415; 80053; 80061; 82043; 82306; 83036; 83721; 84443; 85025

== ENCOUNTER 2019-02-11 07:44 | Outpatient (CLI) | payer BC ==
--- NOTE | 2019-02-11 10:09 | Mammography Report ---
Reason: LEFT LOWER QUADRANT PAIN Procedure Date: 02/11/2019 Accession Number: [id number] / [id number] Procedure: ANEL - Screening Mammo w/Ramesh CPT Code: FULL RESULT: EXAM: Screening Mammo w/Ramesh DATE: 02/11/2019 8:17 AM CLINICAL HISTORY: Screening encounter. History of late childbearing. Family history of breast cancer in the maternal grandmother at the age of 81. TECHNIQUE: (B) - Bilateral CC and MLO views were obtained. COMPARISON: 09/08/2017 through 08/04/2013. PARENCHYMAL PATTERN: (A) - The breast(s) demonstrate(s) scattered fibroglandular densities. FINDINGS: There are no suspicious masses, calcifications, or areas of distortion. IMPRESSION: Negative examination. BI-RADS category 1. RECOMMENDATION: (ANNUAL) - Recommend routine annual screening mammography. BI-RADS CATEGORY: (1) - Negative. STANDARD QUALIFYING STATEMENTS: 1. This examination was not reviewed with the aid of Computer-Aided Detection (CAD). 2. A negative or benign imaging report should not preclude biopsy if clinically suspicious findings are present. 3. Dense breasts may obscure an underlying neoplasm. 4. This examination was reviewed with the aid of 3D breast imaging (tomosynthesis).
== END 2019-02-11 07:45 | disposition home or self-care (01) ==
LOC: DI 07:44
DX: Z12.31 Encounter for screening mammogram for malignant neoplasm of breast (principal); Z80.3 Family history of malignant neoplasm of breast
CPT/HCPCS: 77063; 77067

== ENCOUNTER 2020-01-01 10:47 | Emergency (ER) | payer BC ==
[2020-01-01 11:13] LABS: BILIRUBIN,URINE NEGATIVE (NEGATIVE); CLARITY,URINE CLEAR (CLEAR); KETONES,URINE (UA) NEGATIVE (NEGATIVE); LEUKOCYTE ESTERASE, URINE NEGATIVE (NEGATIVE); OCCULT BLOOD,URINE NEGATIVE (NEGATIVE)
[2020-01-01 11:19] LABS: BACTERIA,URINE Rare /HPF (None Seen); RBC,URINE None Seen /HPF (0-5); SQUAMOUS EPITHELIAL CELL,UR MOD Squamous (<= Few)
--- NOTE | 2020-01-01 11:19 | ED Physician Documentation ---
PD HPI FEMALE - Stated complaint Stated Complaint: FEMALE - Chief complaint Chief Complaint: UTI - History obtained from History obtained from: Patient - History of Present Illness Timing - onset: How many weeks ago (1) Timing - duration: Weeks (1) Timing - details: Abrupt onset, Still present Associated symptoms: Dysuria, Urinary frequency. No: Fever, Back pain, Vaginal bleeding, Vaginal discharge Contributing factors: No: Exposed to STD Similar symptoms before: Diagnosis (remote prior UTI) Recently seen: Clinic (had telemedicine appt with provider and had Rx of Keflex for presumed UTI based on symptoms. Not directed to bring in urine for testing. Has not noticed any improvement over the past 5 days on the meds. Called PMD office yesterday but no call back.) Review of Systems Constitutional: denies: Fever, Chills, Myalgias GI: denies: Nausea, Vomiting, Diarrhea : reports: Dysuria, Frequency. denies: Discharge Skin: denies: Rash Musculoskeletal: denies: Back pain Neurologic: reports: Generalized weakness. 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 - Present Medications Home Medications: Ambulatory Orders Medication Instructions Recorded Confirmed Duloxetine HCl 60 mg PO DAILY 02/01/15 10/11/18 Metformin HCl [Glucophage] 850 mg PO BID 02/01/15 10/11/18 Omeprazole [Prilosec] 20 mg PO BID 02/01/15 10/11/18 Pravastatin Sodium 20 mg PO DAILY 02/01/15 10/11/18 clonazePAM [Klonopin] 2 mg PO DAILY 02/01/15 10/11/18 Nitroglycerin [Nitrostat] 0.4 mg SL Q5MIN PRN #100 tablet 05/23/17 10/11/18 [id number] CD [Cardizem Cd] 120 mg PO DAILY #30 capsule 05/23/17 10/11/18 Apixaban [Eliquis] 5 mg PO DAILY 03/04/18 10/11/18 Flecainide [Tambocar] 50 mg PO Q12H 03/04/18 10/11/18 Fluoxetine HCl [Prozac] 10 mg PO DAILY 03/04/18 10/11/18 Albuterol Sulf [Ventolin Hfa 1 - 2 puffs INH Q4HR PRN #1 inhaler 10/11/18 Inhaler] Cefdinir 300 mg PO BID #20 capsule 10/11/18 Naproxen 375 mg PO BID #15 tablet 01/01/20 Sulfamethox/Trimeth 800/160 1 each PO BID #14 tablet 01/01/20 [Bactrim Ds 800/160] - Allergies Allergies/Adverse Reactions: Allergies Allergy/AdvReac Type Severity Reaction Status Date / Time amoxicillin trihydrate * Allergy Unknown Verified 01/01/20 10:52 [From Augmentin] potassium clavulanate * Allergy Unknown Verified 01/01/20 10:52 [From Augmentin] - Social History Does the pt smoke?: No Smoking Status: Never smoker Does the pt drink ETOH?: Yes Does the pt have substance abuse?: No - Immunizations Immunizations are current?: Yes - POLST Patient has POLST: No POLST Status: Full Code PD ED PE NORMAL - Vitals Vital signs reviewed: Yes - General General: Alert and oriented X 3, No acute distress, Well developed/nourished - Cardiac Cardiac: RRR, No murmur - Respiratory Respiratory: Clear bilaterally - Abdomen Abdomen: Soft, Non tender - Female Female : Deferred - Back Back: No CVA TTP - Derm Derm: Normal color, Warm and dry Results - Vitals Vitals: Vital Signs - 24 hr 01/01/20 01/01/20 10:52 12:33 Temperature 36.8 C 36.6 C Heart Rate 89 88 Respiratory 18 16 Rate Blood Pressure 144/86 H 140/88 H O2 Saturation 95 98 Oxygen O2 Source Room air - Labs Labs: Laboratory Tests 01/01/20 11:05 Urine Color ORANGE Urine Clarity CLEAR Urine pH Ur Specific [place] Urine Protein Urine Glucose (UA) Urine Ketones NEGATIVE Urine Occult Blood NEGATIVE Urine Nitrite Urine Bilirubin NEGATIVE Urine Urobilinogen Ur Leukocyte Esterase NEGATIVE Urine RBC None Seen Urine WBC 0-3 Ur Squamous Epith Cells MOD Squamous H Urine Bacteria Rare Ur Microscopic Review INDICATED Urine Culture Comments NOT INDICATED PD MEDICAL DECISION MAKING - ED course Complexity details: considered differential (incompletely treated UTI based on symptoms. She denies vaginal discharge. Current UA is not too exciting, but she has been on abx so can look inappropriately too good and still have UTI. ), d/w patient Departure - Departure Disposition: 01 Home, Self Care Clinical Impression: Urinary tract infection Qualifiers: Urinary tract infection type: acute cystitis Hematuria presence: without hematuria Qualified Code(s): N30.00 - Acute cystitis without hematuria Condition: Stable Record reviewed to determine appropriate education?: Yes Instructions: ED UTI Cystitis Female Follow-Up: Ivette Ingram ARNP, ENVELOPE STAMPING MACHINE OPERATOR-C [Primary Care Provider] - Prescriptions: Naproxen 375 mg PO BID #15 tablet Sulfamethox/Trimeth 800/160 [Bactrim Ds 800/160] 1 each PO BID #14 tablet Comments: Stay well-hydrated. Stop the cephalexin and changed to Bactrim DS twice daily for a week. Could also add short-term some anti-inflammatory such as naproxen twice daily for several days. Continue the phenazopyridine as needed for urinary discomfort. Add Tylenol if needed for pains. Recheck if not improved well over the next 2 to 3 days. Discharge Date/Time: 01/01/20 12:33
[2020-01-01] MEDS ORDERED: SULFAMETH/TRIMETH DS 800/160 MG TABLET PO STA (12:24)
[2020-01-01 12:35] VITALS: BP 140/88
== END 2020-01-01 12:33 | disposition home or self-care (01) ==
LOC: ED 10:47
DX: N30.00 Acute cystitis without hematuria (principal); I10 Essential (primary) hypertension; E11.9 Type 2 diabetes mellitus without complications; Z79.84 Long term (current) use of oral hypoglycemic drugs; I48.91 Unspecified atrial fibrillation; Z79.01 Long term (current) use of anticoagulants
CPT/HCPCS: 81001; 99283; 99284; A9270; 81003; 87086

== ENCOUNTER 2020-01-17 10:12 | Emergency (ER) | payer BC ==
[2020-01-17 10:28] VITALS: BP 138/75
[2020-01-17 10:43] LABS: BILIRUBIN,URINE NEGATIVE (NEGATIVE); GLUCOSE, URINE (UA) NEGATIVE (NEGATIVE); KETONES,URINE (UA) NEGATIVE (NEGATIVE); LEUKOCYTE ESTERASE, URINE LARGE (NEGATIVE); NITRITE,URINE POSITIVE (NEGATIVE); OCCULT BLOOD,URINE LARGE (NEGATIVE); PROTEIN,URINE 30 mg/dL (NEGATIVE); UROBILINOGEN,URINE 0.2 (NORMAL) E.U./dL (NORMAL)
[2020-01-17 10:46] LABS: CLARITY,URINE CLOUDY (CLEAR)
[2020-01-17 11:10] LABS: BACTERIA,URINE Few /HPF (None Seen); RBC,URINE TNTC /HPF (0-5); SQUAMOUS EPITHELIAL CELL,UR RARE Squamous (<= Few)
[2020-01-17] MEDS ORDERED: levoFLOXacin 250 MG TABLET PO STA (11:55)
--- NOTE | 2020-01-17 11:58 | ED Physician Documentation ---
History of Present Illness - Stated complaint Stated Complaint: FEMALE - Chief complaint Chief Complaint: UTI - History obtained from History obtained from: Patient - Additonal information Additional information: Patient comes emergency department complaining of ongoing dysuria and frequency after being treated with 2 courses of antibiotics in the last month for urinary tract infection. 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 She was concerned that this was lower than the usual 500 mg 4 times daily, but went ahead and took the course anyway. She states it did not feel like it did anything, so she came to the emergency department on December 31 and was seen and started on a course of Bactrim which was also for 7 days. Patient states that she felt some relief with the Bactrim but did not feel that she was completely better when the course ended. Patient states that since then, she has developed progressive recurrence of her symptoms to the point where she states she was up every couple of hours last night to urinate. Patient denies any nausea or vomiting. No abdominal pain. No fevers or chills. No other complaints at this time. Review of Systems Ten Systems: 10 systems reviewed and negative Constitutional: reports: Reviewed and negative Eyes: reports: Reviewed and negative Ears: reports: Reviewed and negative Nose: reports: Reviewed and negative Throat: reports: Reviewed and negative Cardiac: reports: Reviewed and negative Respiratory: reports: Reviewed and negative GI: reports: Reviewed and negative : reports: Dysuria, Frequency Skin: reports: Reviewed and negative Musculoskeletal: reports: Reviewed and negative Neurologic: reports: Reviewed and negative Psychiatric: reports: Reviewed and negative Endocrine: reports: Reviewed and negative Immunocompromised: reports: Reviewed and negative PD PAST MEDICAL HISTORY - Past Medical History Cardiovascular: Hypertension, High cholesterol, Atrial fibrillation, Other Respiratory: Sleep apnea, CPAP use Neuro: None Endocrine/Autoimmune: Type 2 diabetes, Other GI: GERD, Hiatal hernia 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 : None, Other HEENT: None Psych: Depression Musculoskeletal: Osteoarthritis Derm: None - Past Surgical History 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 - Present Medications Home Medications: Ambulatory Orders Medication Instructions Recorded Confirmed Duloxetine HCl 60 mg PO DAILY 02/01/15 10/11/18 Metformin HCl [Glucophage] 850 mg PO BID 02/01/15 10/11/18 Omeprazole [Prilosec] 20 mg PO BID 02/01/15 10/11/18 Pravastatin Sodium 20 mg PO DAILY 02/01/15 10/11/18 clonazePAM [Klonopin] 2 mg PO DAILY 02/01/15 10/11/18 Nitroglycerin [Nitrostat] 0.4 mg SL Q5MIN PRN #100 tablet 05/23/17 10/11/18 [id number] CD [Cardizem Cd] 120 mg PO DAILY #30 capsule 05/23/17 10/11/18 Apixaban [Eliquis] 5 mg PO DAILY 03/04/18 10/11/18 Flecainide [Tambocar] 50 mg PO Q12H 03/04/18 10/11/18 Fluoxetine HCl [Prozac] 10 mg PO DAILY 03/04/18 10/11/18 Albuterol Sulf [Ventolin Hfa 1 - 2 puffs INH Q4HR PRN #1 inhaler 10/11/18 Inhaler] Cefdinir 300 mg PO BID #20 capsule 10/11/18 Naproxen 375 mg PO BID #15 tablet 01/01/20 Sulfamethox/Trimeth 800/160 1 each PO BID #14 tablet 01/01/20 [Bactrim Ds 800/160] Levofloxacin [Levaquin] 500 mg PO DAILY 7 Days #7 tablet 01/17/20 - Allergies Allergies/Adverse Reactions: Allergies Allergy/AdvReac Type Severity Reaction Status Date / Time amoxicillin trihydrate * Allergy Rash Verified 01/17/20 10:28 [From Augmentin] potassium clavulanate * Allergy Unknown Verified 01/17/20 10:28 [From Augmentin] - Social History Does the pt smoke?: No Smoking Status: Never smoker Does the pt drink ETOH?: Yes Does the pt have substance abuse?: No - Immunizations Immunizations are current?: Yes - POLST Patient has POLST: No POLST Status: Full Code PD ED PE NORMAL - Vitals Vital signs reviewed: Yes - General General: Alert and oriented X 3, No acute distress, Well developed/nourished - HEENT HEENT: Atraumatic, PERRL, EOMI, Moist mucous membranes - Neck Neck: Supple, no meningeal sign - Cardiac Cardiac: RRR, No murmur - Respiratory Respiratory: No respiratory distress, Clear bilaterally - Abdomen Abdomen: Soft, Non tender, Non distended - Back Back: No CVA TTP - Derm Derm: Normal color, Warm and dry, No rash - Extremities Extremities: No deformity - Neuro Neuro: Alert and oriented X 3 - Psych Psych: Normal mood, Normal affect Results - Vitals Vitals: Vital Signs - 24 hr 01/17/20 10:18 Temperature 36.8 C Heart Rate 86 Respiratory 16 Rate Blood Pressure 138/75 H O2 Saturation 96 Oxygen O2 Source Room air - Labs Labs: Laboratory Tests 01/17/20 10:20 Urine Color YELLOW Urine Clarity CLOUDY Urine pH 6.0 Ur Specific [place] 1.015 Urine Protein 30 H Urine Glucose (UA) NEGATIVE Urine Ketones NEGATIVE Urine Occult Blood LARGE H Urine Nitrite POSITIVE H Urine Bilirubin NEGATIVE Urine Urobilinogen 0.2 (NORMAL) Ur Leukocyte Esterase LARGE H Urine RBC TNTC H Urine WBC >25 H Ur Squamous Epith Cells RARE Squamous Urine Bacteria Few Ur Microscopic Review INDICATED Urine Culture Comments INDICATED PD MEDICAL DECISION MAKING - ED course Complexity details: reviewed results, re-evaluated patient, considered differential, d/w patient ED course: I discussed with the patient that after reviewing the patient's records unfortunately, the urinalysis was not positive enough last time to trigger a culture. As such, I cannot tell for sure To which antibiotics the bacteria were sensitive or resistant. As such, I will start her on Levaquin. We will initially plan for a 7-day course but this may be extended to 10 days if the patient symptoms have not resolved completely by the end of 7 days. Patient has a strongly positive UA today, which will certainly trigger a culture. I discussed with the patient that the culture results should be back in the next 2 to 3 days, with sensitivities, and that if the Levaquin is not going to be effective, we can change her medication something that is. Departure - Departure Disposition: 01 Home, Self Care Clinical Impression: Cystitis Condition: Stable Instructions: ED UTI Cystitis Female Prescriptions: Levofloxacin [Levaquin] 500 mg PO DAILY 7 Days #7 tablet
== END 2020-01-17 12:16 | disposition home or self-care (01) ==
LOC: ED 10:12
DX: N30.90 Cystitis, unspecified without hematuria (principal); I10 Essential (primary) hypertension; E11.9 Type 2 diabetes mellitus without complications; Z79.84 Long term (current) use of oral hypoglycemic drugs
CPT/HCPCS: 81001; 87077; 87086; 87181; 99283; 99284; A9270; 81003

== ENCOUNTER 2020-02-02 14:30 | Outpatient (CLI) | payer BC ==
[2020-02-02 18:28] LABS: BASOPHILS # (AUTO) 0.1 10^3/uL (0.0-0.1); BASOPHILS % (AUTO) 0.7 %; EOSINOPHILS # (AUTO) 0.2 10^3/uL (0.0-0.7); EOSINOPHILS % (AUTO) 2.5 %; HGB - HEMOGLOBIN 11.1 g/dL (12.0-16.0); LYMPHOCYTES # (AUTO) 3.2 10^3/uL (1.5-3.5); LYMPHOCYTES % (AUTO) 37.3 %; MEAN CORPUSCULAR HEMOGLOBIN 25.9 pg (27.0-31.0); MEAN CORPUSCULAR HGB CONC 30.4 g/dL (32.0-36.0); MEAN CORPUSCULAR VOLUME 85.3 fL (81.0-99.0); MEAN PLATELET VOLUME 9.4 fL (7.9-10.8); MONOCYTES # (AUTO) 0.5 10^3/uL (0.0-1.0); MONOCYTES % (AUTO) 5.9 %; NEUTROPHILS # (AUTO) 4.5 10^3/uL (1.5-6.6); NEUTROPHILS % (AUTO) 53.2 %; PLT - PLATELET COUNT 498 10^3/uL (130-450); RED BLOOD COUNT 4.28 10^6/uL (4.20-5.40); RED CELL DISTRIBUTION WIDTH 16.5 % (12.0-15.0); WHITE BLOOD COUNT 8.5 x10^3/uL (4.8-10.8)
[2020-02-02 18:52] LABS: HB2 TOTAL 11.2 g/dL; HEMOGLOBIN A1C 0.43 g/dL; HEMOGLOBIN A1C % 5.7 % (4.6-6.2)
[2020-02-02 18:56] LABS: ALBUMIN 3.8 g/dL (3.2-5.5); ALBUMIN/GLOBULIN RATIO 1.2 (1.0-2.2); ALKALINE PHOSPHATASE 69 IU/L (42-121); ALT ALANINE AMINOTRANSFERASE 14 IU/L (10-60); AST ASPARTATE AMINOTRANSFERASE 17 IU/L (10-42); BILIRUBIN,TOTAL 0.3 mg/dL (0.2-1.0); BUN - BLOOD UREA NITROGEN 19 mg/dL (6-20); CALCIUM 8.8 mg/dL (8.5-10.3); CARBON DIOXIDE - CO2 24 mmol/L (21-32); CHLORIDE 109 mmol/L (101-111); CHOL/HDL RATIO 2.7 (<4.4); CHOLESTEROL 161 mg/dL; CREATININE 0.9 mg/dL (0.4-1.0); GLUCOSE 91 mg/dL (70-100); HDL CHOLESTEROL 59 mg/dL; LDL CHOLESTEROL,CALCULATED 72 mg/dL; LDL/HDL RATIO 1.2 (<4.4); SODIUM 141 mmol/L (135-145); TOTAL PROTEIN 6.9 g/dL (6.7-8.2); VLDL CHOLESTEROL 30 mg/dL
== END 2020-02-02 23:59 | disposition home or self-care (01) ==
LOC: LAB.WCP 14:30
PROVIDERS: ATTEND Nurse Practitioner
DX: I48.91 Unspecified atrial fibrillation (principal); E78.2 Mixed hyperlipidemia; D64.9 Anemia, unspecified; Z79.899 Other long term (current) drug therapy; E11.9 Type 2 diabetes mellitus without complications; E55.9 Vitamin D deficiency, unspecified; K21.9 Gastro-esophageal reflux disease without esophagitis; F41.9 Anxiety disorder, unspecified; F32.9 Major depressive disorder, single episode, unspecified
CPT/HCPCS: 36415; 80053; 80061; 82043; 82306; 83036; 83721; 84443; 85025

== ENCOUNTER 2020-05-12 15:17 | Outpatient (CLI) | payer BC ==
--- NOTE | 2020-05-15 11:48 | Mammography Report ---
BILATERAL DIGITAL SCREENING MAMMOGRAM 3D/2D: 05/12/2020 CLINICAL: Routine screening. Comparison is made to exams dated: 02/11/2019 mammogram, 09/08/2017 mammogram, 07/05/2016 mammogram, mammogram, 08/04/2013 mammogram, and 03/11/2012 mammogram - [facility]. Th ere are scattered fibroglandular elements in both breasts. No significant masses, calcifications, or other findings are seen in either breast. There has been no significant interval change. IMPRESSION: NEGATIVE There is no mammographic evidence of malignancy. A 1 year screening mammogram is recommended. This exam was interpreted at Station ID: [id number]. NOTE: For mammograms, a report in lay terms will be sent to the patient. Approximately 15% of breast malignancies will not be visualized mammographically. In the management of a palpable breast mass, a negative mammogram must not discourage biopsy of a clinically suspicious lesion. Electronically Signed By: Mindi [email or web address]:05/12/2020 16:29:48 ACR BI-RADS Category 1: Negative 3341F PARENCHYMAL PATTERN: (A) - The breast(s) demonstrate(s) scattered fibroglandular densities. BI-RADS CATEGORY: (1) - 1 RECOMMENDATION: (ANNUAL) - Recommend routine annual screening mammography. [id number] 1 year screening LATERALITY: (B)
== END 2020-05-12 15:18 | disposition home or self-care (01) ==
LOC: DI 15:17
PROVIDERS: ATTEND Nurse Practitioner
DX: Z12.31 Encounter for screening mammogram for malignant neoplasm of breast (principal)
CPT/HCPCS: 77063; 77067

== ENCOUNTER 2020-05-15 07:25 | Outpatient (CLI) | payer BC ==
[2020-05-15 12:22] LABS: CARBON DIOXIDE - CO2 25 mmol/L (21-32); CHLORIDE 107 mmol/L (101-111); SODIUM 139 mmol/L (135-145)
[2020-05-15 12:23] LABS: ALBUMIN 3.5 g/dL (3.2-5.5); ALBUMIN/GLOBULIN RATIO 1.1 (1.0-2.2); ALKALINE PHOSPHATASE 74 IU/L (42-121); ALT ALANINE AMINOTRANSFERASE 16 IU/L (10-60); AST ASPARTATE AMINOTRANSFERASE 18 IU/L (10-42); BILIRUBIN,TOTAL 0.6 mg/dL (0.2-1.0); BUN - BLOOD UREA NITROGEN 20 mg/dL (6-20); CALCIUM 8.9 mg/dL (8.5-10.3); CHOLESTEROL 192 mg/dL; CREATININE 0.8 mg/dL (0.4-1.0); GLUCOSE 94 mg/dL (70-100); HDL CHOLESTEROL 63 mg/dL; LDL CHOLESTEROL,CALCULATED 105 mg/dL; LDL/HDL RATIO 1.7 (<4.4); TOTAL PROTEIN 6.8 g/dL (6.7-8.2); VLDL CHOLESTEROL 24 mg/dL
[2020-05-15 13:00] LABS: HEMOGLOBIN A1c% 6.1 % (4.27-6.07)
== END 2020-05-15 23:59 ==
LOC: LAB.WCP 07:25
PROVIDERS: ATTEND Nurse Practitioner
DX: I48.91 Unspecified atrial fibrillation (principal); E11.9 Type 2 diabetes mellitus without complications; R78.2 Finding of cocaine in blood
CPT/HCPCS: 36415; 80053; 80061; 83036; 83721

== ENCOUNTER 2020-11-23 08:00 | Outpatient (CLI) | payer BC ==
[2020-11-23 11:54] LABS: CALCIUM 9.3 mg/dL (8.5-10.3); CREATININE 0.9 mg/dL (0.4-1.0)
[2020-11-23 12:07] LABS: BASOPHILS # (AUTO) 0.1 10^3/uL (0.0-0.1); BASOPHILS % (AUTO) 0.7 %; EOSINOPHILS # (AUTO) 0.2 10^3/uL (0.0-0.7); EOSINOPHILS % (AUTO) 2.1 %; HCT - HEMATOCRIT 36.2 % (37.0-47.0); LYMPHOCYTES # (AUTO) 3.1 10^3/uL (1.5-3.5); LYMPHOCYTES % (AUTO) 34.9 %; MEAN CORPUSCULAR HEMOGLOBIN 24.9 pg (27.0-31.0); MEAN CORPUSCULAR HGB CONC 30.4 g/dL (32.0-36.0); MEAN CORPUSCULAR VOLUME 82.1 fL (81.0-99.0); MONOCYTES # (AUTO) 0.6 10^3/uL (0.0-1.0); MONOCYTES % (AUTO) 6.3 %; NEUTROPHILS # (AUTO) 4.9 10^3/uL (1.5-6.6); NEUTROPHILS % (AUTO) 55.6 %; PLT - PLATELET COUNT 470 10^3/uL (130-450); RED BLOOD COUNT 4.41 10^6/uL (4.20-5.40); WHITE BLOOD COUNT 8.9 x10^3/uL (4.8-10.8)
[2020-11-23 12:36] LABS: ESTIMATED AVERAGE GLUCOSE 120 mg/dL (70-100); HEMOGLOBIN A1c% 5.8 % (4.27-6.07)
== END 2020-11-23 23:59 | disposition home or self-care (01) ==
LOC: LAB.WCP 08:00
PROVIDERS: ATTEND Nurse Practitioner
DX: E11.9 Type 2 diabetes mellitus without complications (principal); D64.9 Anemia, unspecified
CPT/HCPCS: 36415; 80048; 83036; 85025

== ENCOUNTER 2021-04-19 16:56 | Outpatient (CLI) | payer BC ==
--- NOTE | 2021-04-19 17:28 | SLEEP CARE CONSULTATION ---
Information from patient questionnaire entered by Qian Graham. I have reviewed and concur with the information entered by Qian Graham. This document represents the service I personally performed and the decisions made by me, Kitty Redmond ARNP. History of Present Illness Service Date and Time: 04/19/2021 1656 Previous diagnosis: Moderate, Obstructive Sleep Apnea-Hypopnea Syndrome AHI: 29.4 (in 2012, 50 in 2002) Reason for follow up: annual (Last seen 03/2020) Equipment type: CPAP Equipment obtained from: [employer] (concerned about costs of supplies , considering online) Mask style: Nasal (Dreamwear) Backup mask available: Yes (old mask) Last cushion change: few days ago Prior sleep studies: Yes Year and Where: 2012 - [facility] , 2002 in [facility] additional information: JASON SCHULTE was diagnosed to have moderate, AHI 29.4, obstructive sleep apnea- hypopnea syndrome and returned today for CPAP therapy annual follow-up. CPAP Compliance Data - Data Reviewed with Patient Average duration of nightly device use: 7 h 38 min Compliance rate %: 100 Current pressure setting (cmH2O): 6-8 Humidity setting: Off Heated hose settin Average residual AHI: 4.3 Average large leak: 7 min 49 sec Subjective Patient concerns: reports: mask leak noise (just needs adjustment and could use new headgear, old one is stretched out some). denies: aerophagia, mask disc omfort, air blowing in eyes, condensation in mask/hose, nasal congestion, dry mouth, nose, throat, epistaxis, other Observed to snore while using device: No Current pressure setting perceived as: comfortable On therapy, patient: reports: sleeping better, awakening more refreshed, being more awake and alert during the day, more rested overall. denies: drowsiness while driving Initial [place] Sleepiness Scale score: 15 (in 2012) Current [place] Sleepiness Scale score: 7 Allergies and Home Medications Home medication list reviewed: Yes (no changes) Review of Systems Review of systems same as previous: Yes (no changes) Physical Exam Heart Rate: 81 O2 Saturation: 97 Height: 5 ft 9 in Weight: 296 lb Body Mass Index: 43.7 BMI Classification: Morbidly Obese Impression and Plan 1. Obstructive Sleep Apnea-Hypopnea Syndrome, moderate, with excellent treatment compliance and good apnea control. On CPAP therapy, the patient has better sleep quality and is more rested overall. Patient is satisfied with current treatment. 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 Patient has already registered their device for the recall. Patient denies any black particles seen in machine or hoses, any unusual odors coming from device. Patient has not experienced any physical symptoms such as upper airway irritation, headache, skin or eye irritation, asthma, nausea/vomiting, diff iculty breathing or chest pain. Patient informed that they may use an inline CPAP filter that they can obtain online to reduce chance of any particles being inhaled or ingested. We discussed thoroughly the health risks of not using the CPAP versus continuing use with the filter in place. If patient is not able to sleep due to waking up choking, gasping for air or other respiratory distress that they may decide to continue using it until it is either replaced or repaired. Patient will continue to use her CPAP device. Patient voiced understanding and agreement with plan. Patient's apnea severity and rationale for treatment to reduce apnea, improve sleep quality and reduce cardiovascular and cerebrovascular events was reviewed. I also reviewed the benefit of consistent device use of CPAP for hypertension, arrhythmia, diabetes, and depression/anxiety. * Continue auto CPAP pressure at 6-8 cmH2O * Pt to obtain and use inline CPAP particle filter * Notify me if snoring with mask or feeling that the pressure is too much or too little * Attempt to lose weight * Call this office if any problems using CPAP * Return for follow up in 1 year, or sooner if concerns arise Counseling Topics: Spare mask, Weight loss health impact Visit Type: In Office Time Spent with Patient (minutes): 27 Provider Statement: I spent 100% of the Face to Face Visit with the patient with greater than 50% spent counseling the patient and coordination of care.
== END 2021-04-19 16:57 | disposition home or self-care (01) ==
LOC: SC 16:56
PROVIDERS: ATTEND Nurse Practitioner Family
DX: G47.33 Obstructive sleep apnea (adult) (pediatric) (principal); E66.01 Morbid (severe) obesity due to excess calories; Z68.41 Body mass index [BMI] 40.0-44.9, adult
CPT/HCPCS: 99212; 99213

== ENCOUNTER 2022-06-05 16:16 | Outpatient (CLI) | payer BC ==
[2022-06-05 16:50] VITALS: BP 120/72
--- NOTE | 2022-06-05 16:50 | SLEEP CARE CONSULTATION ---
Information from patient questionnaire entered by Cierra Lester MA. I have reviewed and concur with the information entered by Cierra Lester MA. This document represents the service I personally performed and the decisions made by , Kitty Redmond ARNP. History of Present Illness Service Date and Time: 06/05/2022 1616 Previous diagnosis: Moderate, Obstructive Sleep Apnea-Hypopnea Syndrome AHI: 29.4 (in 2012, 50 in 2002) Equipment type: CPAP Equipment obtained from: [employer] ([employer] supplies on [employer]) Mask style: Nasal (Dreamwear) Mask brand: Respironics Backup mask available: Yes (old mask) Last cushion change: 3 days ago [facility] additional information: JASON SCHULTE was diagnosed to have moderate, AHI 29.4, obstructive sleep apnea-hypopnea syndrome and returned today for CPAP therapy annual follow-up. Sleep Study - Results Prior sleep studies: Yes [facility] [place], [place] CPAP Compliance Data - Data Reviewed with Patient Average duration of nightly device use: 7 hours 28 mins Compliance rate %: 97.2 (177/180 days used) Current pressure setting (cmH2O): 6-8 Average residual AHI: 7.2 Central apnea: 0.1 Obstructive apnea: 0.9 Hypopnea: 6.2 Average large leak: 15 L/min Subjective Patient concerns: denies: aerophagia, mask discomfort, air blowing in eyes, mask leak noise, condensation in mask/hose, nasal congestion, dry mouth, nose, throat, epistaxis Observed to snore while using device: No Current pressure setting perceived as: comfortable On therapy, patient: reports: sleeping better, awakening more refreshed, being more awake and alert during the day, more rested overall. denies: drowsiness while driving Initial [place] Sleepiness Scale score: 15 (in 2012) Current [place] Sleepiness Scale score: 11 Allergies and Home Medications Drug allergies reviewed: Yes (as listed) Home medication list reviewed: Yes Allergy and home medication list: Allergies amoxicillin trihydrate * [From Augmentin] Allergy (Verified 01/17/20 10:28) Rash potassium clavulanate * [From Augmentin] Allergy (Verified 01/17/20 10:28) Unknown New meds: Duloxetine Bupropion Victoza Review of Systems Review of systems same as previous: Yes (no changes) Physical Exam Vital signs obtained and entered by: Noemí GUTHRIE Blood Pressure: 120/72 Cuff size: large Heart Rate: 88 O2 Saturation: 96 Height: 5 ft 9 in Weight: 292 lb Body Mass Index: 43.1 BMI Classification: Morbidly Obese Impression and Plan 1. Obstructive Sleep Apnea-Hypopnea Syndrome, moderate, with good treatment compliance and good apnea control. On CPAP therapy, the patient has better sleep quality and is more rested overall. Patient has significant improvement of their sleep apnea and are satisfied with current CPAP therapy. Patient denies problems with oral dryness, nasal congestion, epistaxis, skin irritation or aerophagia. Patient asking about other therapies that would control her apneas. We discussed briefly Inspire implant therapy. Patient is getting her supplies on [employer] and states she will continue to do so. Patient's apnea severity and rationale for treatment to reduce apnea, improve sleep quality and reduce cardiovascular and cerebrovascular events was reviewed. I also reviewed the benefit of consistent device use of CPAP for hypertension, arrhythmia, diabetes, depression and anxiety. 2. Obesity, unspecified. Currently patients BMI is 43.1. We also discussed trying to lose weight and she states she will try to get on her elliptical to increase her exercise. Obesity increases the risk of apnea, CPAP pressure requirements and overall health risks especially cardiovascular and diabetes. Thus patient is advised to lose weight. Weight loss can be done with reducing portion size, reducing refined foods and balancing content with vegetables, fruit and whole grain foods. In addition, patient encouraged to get regular exercise. She voiced understanding. * Continue auto CPAP pressure at 6-8 cmH2O * Notify me if snoring with mask or feeling that the pressure is too much or too little * Attempt to lose weight * Call this office if any problems using CPAP * Return for follow up in 1 year, or sooner if concerns arise Counseling Topics: Spare mask, Weight loss health impact Visit Type: In Office Time Spent with Patient (minutes): 21 Provider Statement: I spent 100% of the Face to Face Visit with the patient with greater than 50% spent counseling the patient and coordination of care.
== END 2022-06-05 16:17 | disposition home or self-care (01) ==
LOC: SC 16:16
PROVIDERS: ATTEND Nurse Practitioner Family
DX: G47.33 Obstructive sleep apnea (adult) (pediatric) (principal); E66.01 Morbid (severe) obesity due to excess calories; Z68.41 Body mass index [BMI] 40.0-44.9, adult
CPT/HCPCS: 99212; 99213

== ENCOUNTER 2022-07-12 15:00 | Outpatient (CLI) | payer BC ==
--- NOTE | 2022-07-12 18:44 | DEXA Report ---
PROCEDURE: Dexa Spine and/or Hip INDICATIONS: POST MENOPAUSAL TECHNIQUE: Dual energy x-ray absorptiometry (DXA) was performed on a Sequenom System. Regions measur ed are the AP Spine, femoral neck, and if needed forearm. COMPARISON: None. FINDINGS: Lumbar Spine: Bone Mineral Density 1.157 g/cm/cm,T score -0.2, Left Hip: Bone Mineral Density 1.161 g/cm/cm,T score 1.2, Left Femoral Neck: Bone Mineral Density 1.018 g/cm/cm, T score -0.1, (T score greater or equal to -1.0: NORMAL) (T score from -1.1 to -2.4: OSTEOPENIA) (T score less than or equal to -2.5 to: OSTEOPOROSIS) Impression: Normal bone mineral density Patients with diagnosis of osteoporosis or osteopenia should have regular bone mineral density assess ment. For those eligible for Medicare, routine testing is allowed once every 2 years. Testing frequ ency can be increased for patients who have rapidly progressing disease or for those who are receivin g medical therapy to restore bone mass. Reviewed by: Rickie Bar MD on 07/12/2022 5:42 PM [facility] Approved by: Rickie Bar MD on 07/12/2022 5:42 PM [place] Station ID: [id number]
== END 2022-07-12 15:01 | disposition home or self-care (01) ==
LOC: DI 15:00
PROVIDERS: ATTEND Family Medicine
DX: Z78.0 Asymptomatic menopausal state (principal)

== ENCOUNTER 2022-07-12 15:02 | Outpatient (CLI) | payer BC ==
--- NOTE | 2022-07-16 12:16 | Mammography Report ---
BILATERAL DIGITAL SCREENING MAMMOGRAM 3D/2D: 07/12/2022 CLINICAL: Routine screening. Comparison is made to exams dated: 05/12/2020 mammogram, 02/11/2019 mammogram, 09/08/2017 mammogram, an d 07/05/2016 mammogram - . Both breasts are almost entirely fatty (category a/<25% glandular tissue). No significant masses, calcifications, or other findings are seen in either breast. There has been no significant interval change. IMPRESSION: NEGATIVE There is no mammographic evidence of malignancy. A 1 year screening mammogram is recommended. Based on the Tyrer Cuzick model (a risk assessment model) the patients lifetime risk is 7.3% and her 10 year risk is 2.9%. According to the ACR, ACS, and NCCN guidelines, an annual breast MRI exam margot g with mammogram is recommended if the patients lifetime risk is 20% or greater. This exam was interpreted at Station ID: [id number]. NOTE: For mammograms, a report in lay terms will be sent to the patient. Approximately 15% of breast malignancies will not be visualized mammographically. In the management of a palpable breast mass, a negative mammogram must not discourage biopsy of a clinically suspicious lesion. Electronically Signed By: José jackson/liz:07/15/2022 18:26:08 ACR BI-RADS Category 1: Negative 3341F PARENCHYMAL PATTERN: (F) - The breast(s) demonstrate(s) diffuse fatty replacement. BI-RADS CATEGORY: (1) - 1 RECOMMENDATION: (ANNUAL) - Recommend routine annual screening mammography. [id number] 1 year screening LATERALITY: (B)
== END 2022-07-12 15:03 | disposition home or self-care (01) ==
LOC: DI 15:02
PROVIDERS: ATTEND Family Medicine
DX: Z12.31 Encounter for screening mammogram for malignant neoplasm of breast (principal)

== ENCOUNTER 2022-07-15 07:33 | Outpatient (CLI) | payer BC ==
[2022-07-15 12:27] LABS: BASOPHILS % (AUTO) 0.5 %; EOSINOPHILS # (AUTO) 0.1 10^3/uL (0.0-0.7); EOSINOPHILS % (AUTO) 1.9 %; HCT - HEMATOCRIT 41.7 % (37.0-47.0); HGB - HEMOGLOBIN 13.2 g/dL (12.0-16.0); LYMPHOCYTES # (AUTO) 2.1 10^3/uL (1.5-3.5); LYMPHOCYTES % (AUTO) 32.2 %; MEAN CORPUSCULAR HEMOGLOBIN 28.2 pg (27.0-31.0); MEAN CORPUSCULAR HGB CONC 31.7 g/dL (32.0-36.0); MEAN CORPUSCULAR VOLUME 89.1 fL (81.0-99.0); MONOCYTES # (AUTO) 0.6 10^3/uL (0.0-1.0); MONOCYTES % (AUTO) 9.1 %; NEUTROPHILS # (AUTO) 3.6 10^3/uL (1.5-6.6); PLT - PLATELET COUNT 403 10^3/uL (130-450); RED BLOOD COUNT 4.68 10^6/uL (4.20-5.40); RED CELL DISTRIBUTION WIDTH 13.5 % (12.0-15.0); WHITE BLOOD COUNT 6.5 x10^3/uL (4.8-10.8)
[2022-07-15 12:38] LABS: % IRON SATURATION 27 % (20-50); ALBUMIN 3.8 g/dL (3.2-5.5); ALKALINE PHOSPHATASE 78 IU/L (42-121); ALT ALANINE AMINOTRANSFERASE 19 IU/L (10-60); AST ASPARTATE AMINOTRANSFERASE 17 IU/L (10-42); BILIRUBIN,TOTAL 0.5 mg/dL (0.2-1.0); BUN - BLOOD UREA NITROGEN 13 mg/dL (6-20); CALCIUM 9.6 mg/dL (8.5-10.3); CARBON DIOXIDE - CO2 24 mmol/L (21-32); CHLORIDE 105 mmol/L (101-111); CHOLESTEROL 156 mg/dL; GFR - MDRD 57 (>89); GLUCOSE 115 mg/dL (70-100); HDL CHOLESTEROL 52 mg/dL; IRON 91 ug/dL (28-170); LDL CHOLESTEROL,CALCULATED 80 mg/dL; LDL/HDL RATIO 1.5 (<4.4); POTASSIUM 3.8 mmol/L (3.5-5.0); SODIUM 140 mmol/L (135-145); TOTAL IRON BINDING CAPACITY 336 ug/dL (250-450); TOTAL PROTEIN 7.6 g/dL (6.7-8.2); TRANSFERRIN 240 mg/dL (192-382); TRIGLYCERIDES 118 mg/dL; VLDL CHOLESTEROL 24 mg/dL
[2022-07-15 12:46] LABS: ESTIMATED AVERAGE GLUCOSE 114 mg/dL (70-100); HEMOGLOBIN A1c% 5.6 % (4.27-6.07)
[2022-07-15 12:50] LABS: MICROALBUM/CREATININE RATIO,UR 3.7 ug/mg (<30.0); MICROALBUMIN,URINE 0.7 mg/dL (0-300.0)
== END 2022-07-15 07:34 | disposition home or self-care (01) ==
LOC: LAB.N 07:33
PROVIDERS: ATTEND Family Medicine
DX: E11.9 Type 2 diabetes mellitus without complications (principal); E55.9 Vitamin D deficiency, unspecified; D50.9 Iron deficiency anemia, unspecified; I48.91 Unspecified atrial fibrillation; E78.5 Hyperlipidemia, unspecified
CPT/HCPCS: 36415; 80053; 80061; 82043; 82306; 82570; 82728; 83036; 83540; 83721; 84466; 85025

== ENCOUNTER 2022-10-08 10:27 | Emergency (ER) | payer BC ==
--- OUTSIDE RECORDS SUMMARY | 2022-10-08 10:59 | EXTERNAL MEDICAL SUMMARY RPT | Continuity of Care Document ---
:1960 Author Organization [facility] Address [address] [place] [address] Phone Allergies No information. Encounters No information. Functional Status No information. Immunizations No information. Medications No information. Problems date description facility 2022-09-23 06:45 Postmenopausal bleeding [facility] 2022-09-23 07:06 Postmenopausal bleeding [facility] 2022-09-23 07:08 Postmenopausal bleeding [facility] Procedures No information. Results/Labs test date author facility value unit interpret ation Result panel 1 (unknown) (no (unknown) (unknown) (no value) (units (unk nown) date) unknown) (unknown) (no (unknown) (unknown) [id number] (units (unkno wn) date) unknown) (unknown) (no (unknown) (unknown) 09/23/22 (units (unkno wn) date) unknown) (unknown) (no (unknown) (unknown) 1. Abnormal (units (un known) date) thickening of the unknown) endometrial complex in this postmenopausal female (unknown) (no (unknown) (unknown) [address] [place] [address] (units (unknown) date) unknown) (unknown) (no (unknown) (unknown) 8:54. (units (unkno wn) date) unknown) (unknown) (no (unknown) (unknown) Accession (units (unkn own) date) Number: unknown) [id number] (unknown) (no (unknown) (unknown) Additional (units (unk nown) date) endovaginal unknown) scanning was necessary due to incomplete visualization (unknown) (no (unknown) (unknown) Age/Sex: 61 / F (units (unknown) date) Date of Service: unknown) (unknown) (no (unknown) (unknown) NEEMA Carrizales (units ( unknown) date) [id number] unknown) (unknown) (no (unknown) (unknown) Approved by: (units (u nknown) date) Manuel Doss M.D. on unknown) 09/23/2022 at 13:58 (unknown) (no (unknown) (unknown) COMPARISON: (units (un known) date) [facility] [place], PELVIC COMPLETE, 11/28/2021, (unknown) (no (unknown) (unknown) Caution: Report (units (unknown) date) not yet finalized unknown) and possibly incomplete! (unknown) (no (unknown) (unknown) : 1960 (units (unknown) date) Acct:[id number] unknown) (unknown) (no (unknown) (unknown) Dictated by: (units (u nknown) date) Aneudy Dial RRA unknown) Interpreted: Manuel Doss MD on 09/23/2022 at 9:12 (unknown) (no (unknown) (unknown) Draft (units (unkno wn) date) unknown) (unknown) (no (unknown) (unknown) FINDINGS: (units (unkn own) date) unknown) (unknown) (no (unknown) (unknown) IMPRESSION: (units (un known) date) unknown) (unknown) (no (unknown) (unknown) INDICATIONS: F/U (units (unknown) date) endometrial unknown) thickening/PMB (unknown) (no (unknown) (unknown) [facility] (units (unknown) date) unknown) (unknown) (no (unknown) (unknown) Loc: [place] (units (unkno wn) date) unknown) (unknown) (no (unknown) (unknown) Ordering (units (unkno wn) date) Provider: unknown) Jarad Love MD (unknown) (no (unknown) (unknown) Other: No (units (unkn own) date) pathologic free unknown) abdominal or pelvic fluid. (unknown) (no (unknown) (unknown) Ovaries: Ovaries (units (unknown) date) not identified. unknown) No adnexal masses. (unknown) (no (unknown) (unknown) PROCEDURE: US (units ( unknown) date) PELVIC COMPLETE unknown) (unknown) (no (unknown) (unknown) Patient: (units (unkno wn) date) Nilda Hancock L unknown) MR#: [id number] (unknown) (no (unknown) (unknown) Procedure: US (units ( unknown) date) pelvic complete unknown) (unknown) (no (unknown) (unknown) Real-time (units (unkn own) date) scanning was unknown) performed of the pelvic organs, with image (unknown) (no (unknown) (unknown) Signed (units (unkno wn) date) unknown) (unknown) (no (unknown) (unknown) TECHNIQUE: (units (unk nown) date) unknown) (unknown) (no (unknown) (unknown) To assist (units (unkn own) date) unknown) (unknown) (no (unknown) (unknown) Transcribed by: (units (unknown) date) HERMELINDO on unknown) 09/23/2022 at 9:15 (unknown) (no (unknown) (unknown) Ultrasound (units (unk nown) date) Report unknown) (unknown) (no (unknown) (unknown) Uterus: Uterus (units (unknown) date) is retroverted unknown) and normal in size at 5.9 x 3.2 x 4.8 cm. The (unknown) (no (unknown) (unknown) We strive to (units (u nknown) date) produce accurate, unknown) complete, and clear reports of imaging services. (unknown) (no (unknown) (unknown) adnexal and (units (un known) date) endometrial unknown) structures by transabdominal scanning. (unknown) (no (unknown) (unknown) and voice (units (unkn own) date) recognition unknown) software. Therefore, it may contain abnormal punctuation, (unknown) (no (unknown) (unknown) documentation. (units (unknown) date) unknown) (unknown) (no (unknown) (unknown) for pathologic (units (unknown) date) diagnosis. unknown) (unknown) (no (unknown) (unknown) history of (units (unk nown) date) bleeding at 17.1 unknown) mm similar to prior exam. Endometrial biopsy is (unknown) (no (unknown) (unknown) inaccuracies. (units ( unknown) date) unknown) (unknown) (no (unknown) (unknown) insertions (units (unk nown) date) and/or omissions. unknown) Occasional wrong-word or sound-alike substitutions (unknown) (no (unknown) (unknown) is (units (unkno wn) date) heterogeneous. unknown) The endometrium measures 17.1 mm combined thickness. (unknown) (no (unknown) (unknown) may (units (unkno wn) date) unknown) (unknown) (no (unknown) (unknown) myometrium (units (unk nown) date) unknown) (unknown) (no (unknown) (unknown) occur. Though we (units (unknown) date) review the report unknown) and make efforts to correct it, we do (unknown) (no (unknown) (unknown) of the (units (unkno wn) date) unknown) (unknown) (no (unknown) (unknown) recommend that (units (unknown) date) unknown) (unknown) (no (unknown) (unknown) recommended (units (un known) date) unknown) (unknown) (no (unknown) (unknown) templates (units (unkn own) date) unknown) (unknown) (no (unknown) (unknown) the report be (units ( unknown) date) read carefully in unknown) proper context to recognize any text (unknown) (no (unknown) (unknown) us in improving (units (unknown) date) patient care, unknown) this report was composed using standard report (unknown) (no (unknown) (unknown) with (units (unkno wn) date) unknown) Social History No information. Vital Signs No information.
--- NOTE | 2022-10-08 11:43 | XRAY Report ---
PROCEDURE: Chest 2 View X-Ray INDICATIONS: cough with SOA TECHNIQUE: 2 views of the chest were acquired. COMPARISON: Chest x-ray 10/11/2018. FINDINGS: Surgical changes and devices: None. Lungs and pleura: No pleural effusions or pneumothorax. Lungs are clear. Mediastinum: Mediastinal contours are normal. Heart size is normal. Bones and chest wall: No suspicious bony abnormalities. Soft tissues appear unremarkable. IMPRESSION: No acute pulmonary process. Reviewed by: Lore Chand MD on 10/08/2022 11:42 AM PST Approved by: Lore Chand MD on 10/08/2022 11:42 AM [facility] Station ID: [id number]
[2022-10-08 11:45] LABS: B. PARAPERTUSSIS- RESP PCR PAN NOT DETECTED; B. PERTUSSIS- RESP PCR PANEL NOT DETECTED; C. PNEUMONIAE- RESP PCR PANEL NOT DETECTED; CORONAVIRUS 229E-RESP PCR NOT DETECTED; CORONAVIRUS HKU1-RESP PCR NOT DETECTED; CORONAVIRUS NL63-RESP PCR NOT DETECTED; CORONAVIRUS OC43-RESP PCR NOT DETECTED; HUMAN METAPNEUMOVIRUS NOT DETECTED; INFLUENZA A- RESP PCR PANEL NOT DETECTED; INFLUENZA B - RESP PCR PANEL NOT DETECTED; M. PNEUMONIAE- RESP PCR PANEL NOT DETECTED; PARAINFLUENZA VIRUS 1 DETECTED; PARAINFLUENZA VIRUS 2 NOT DETECTED; PARAINFLUENZA VIRUS 3 NOT DETECTED; PARAINFLUENZA VIRUS 4 NOT DETECTED; RHINOVIRUS/ENTEROVIRUS NOT DETECTED; RSV- RESP PCR PANEL NOT DETECTED; SARS-CoV-2 -RESP PCR PANEL NOT DETECTED
--- NOTE | 2022-10-08 15:10 | ED Physician Documentation ---
PD HPI DYSPNEA - Stated complaint Stated Complaint: SOA - Chief complaint Chief Complaint: Resp - History obtained from History obtained from: Patient - Additional information Additional information: Pt comes to the ED with CC of cough and general malaise for the past several days. She has felt tired, and has had some chills, but no fever that she knows of. Pt states her cough has been productive of some clear phlegm. Pt states she's had some nausea, a runny nose, and headache. No dyspnea. She states she just doesn't feel good. 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 : None, Other HEENT: None Psych: Depression Musculoskeletal: Osteoarthritis Derm: None - Past Surgical History Past Surgical History: Yes /PROGRAMMING DIRECTOR: Other - Present Medications Home Medications: Ambulatory Orders Medication Instructions Recorded Confirmed Duloxetine HCl 30 mg PO DAILY 02/01/15 10/11/18 Metformin HCl [Glucophage] 850 mg PO BID 02/01/15 10/11/18 Omeprazole [Prilosec] 20 mg PO BID 02/01/15 10/11/18 Pravastatin Sodium 20 mg PO DAILY 02/01/15 10/11/18 clonazePAM [Klonopin] 2 mg PO DAILY 02/01/15 10/11/18 Nitroglycerin [Nitrostat] 0.4 mg SL Q5MIN PRN #100 tablet 05/23/17 10/11/18 diltiaZEM CD [Cardizem Cd] 120 mg PO DAILY #30 capsule 05/23/17 10/11/18 Apixaban [Eliquis] 5 mg PO DAILY 03/04/18 10/11/18 Flecainide [Tambocar] 50 mg PO Q12H 03/04/18 10/11/18 Fluoxetine HCl [Prozac] 10 mg PO DAILY 03/04/18 10/11/18 Albuterol Sulf [Ventolin Hfa 1 - 2 puffs INH Q4HR PRN #1 inhaler 10/11/18 Inhaler] Cefdinir 300 mg PO BID #20 capsule 10/11/18 Naproxen 375 mg PO BID #15 tablet 01/01/20 Sulfamethox/Trimeth 800/160 1 each PO BID #14 tablet 01/01/20 [Bactrim Ds 800/160] levoFLOXacin [Levaquin] 500 mg PO DAILY 7 Days #7 tablet 01/17/20 Liraglutide [Victoza 2-Yemi] See Rx Instructions .ROUTE .COMPLEX 06/05/22 06/05/22 buPROPion HCL [Wellbutrin Xl] See Rx Instructions .ROUTE .COMPLEX 06/05/22 06/05/22 - Allergies Allergies/Adverse Reactions: Allergies Allergy/AdvReac Type Severity Reaction Status Date / Time amoxicillin trihydrate * Allergy Rash Verified 10/08/22 10:43 [From Augmentin] potassium clavulanate * Allergy Unknown Verified 10/08/22 10:43 [From Augmentin] sulfamethoxazole Allergy Rash Verified 10/08/22 10:43 [From Septra] trimethoprim [From Septra] Allergy Rash Verified 10/08/22 10:43 - Social History Does the pt smoke?: No Smoking Status: Never smoker Does the pt drink ETOH?: Yes Does the pt have substance abuse?: No - Immunizations Immunizations are current?: Yes - POLST Patient has POLST: No POLST Status: Full Code PD ED PE NORMAL - Vitals Vital signs reviewed: Yes - General General: Alert and oriented X 3, No acute distress, Well developed/nourished - HEENT HEENT: Atraumatic, PERRL, EOMI, Moist mucous membranes, Pharynx benign - Neck Neck: Supple, no meningeal sign - Cardiac Cardiac: RRR, No murmur, Strong equal pulses - Respiratory Respiratory: No respiratory distress, Clear bilaterally - Abdomen Abdomen: Soft, Non tender, Non distended - Derm Derm: Normal color, Warm and dry, No rash - Extremities Extremities: No deformity, No edema - Neuro Neuro: Alert and oriented X 3 - Psych Psych: Normal mood, Normal affect Results - Vitals Vitals: Oxygen O2 Source Room air - Labs Labs: Laboratory Tests 10/08/22 10:45 Nasal Adenovirus (PCR) NOT DETECTED Nasal B. parapertussis DNA (PCR) NOT DETECTED Nasal Coronavir 229E PCR NOT DETECTED Nasal Coronavir HKU1 PCR NOT DETECTED Nasal Coronavir NL63 PCR NOT DETECTED Nasal Coronavir OC43 PCR NOT DETECTED Nasal Enterovir/Rhinovir PCR NOT DETECTED Nasal Influenza B PCR NOT DETECTED Nasal Influenza A PCR NOT DETECTED Nasal Parainfluen 1 PCR DETECTED A Nasal Parainfluen 2 PCR NOT DETECTED Nasal Parainfluen 3 PCR NOT DETECTED Nasal Parainfluen 4 PCR NOT DETECTED Nasal RSV (PCR) NOT DETECTED Nasal B.pertussis DNA PCR NOT DETECTED Nasal C.pneumoniae (PCR) NOT DETECTED Yazan Human Metapneumo PCR NOT DETECTED Nasal M.pneumoniae (PCR) NOT DETECTED Nasal SARS-CoV-2 (PCR) NOT DETECTED - Rads (name of study) cxr Radiology: Final report received, See rad report (neg) PD Medical Decision Making - ED course Complexity details: reviewed results, re-evaluated patient, considered differential, d/w patient ED course: Pt was treated symptomatically in the ED. She was sent for a CXR, which was ordered and reviewed by me, and read by the radiologist as negative. I did order and review a respiratory PCR panel, which was positive for parainfluenza. I discussed the findings with the pt. We have discussed symptomatic management at home, the expected length and course of illness, and the usual indications for return. Departure - Departure Disposition: 01 Home, Self Care Clinical Impression: Upper respiratory infection Qualifiers: URI type: unspecified viral URI Qualified Code(s): J06.9 - Acute upper respiratory infection, unspecified Condition: Stable Instructions: ED Viral Syndrome Comments: Your viral panel is positive for parainfluenza virus, which causes flulike sympt oms. The primary symptoms can last up to a couple of weeks, but will ultimately resolve on their own. You should stay off of work until you are feeling better. Please follow-up with your primary care physician as needed. Forms: Activity restrictions Discharge Date/Time: 10/08/22 15:22
[2022-10-08 15:22] VITALS: BP 150/80
== END 2022-10-08 15:22 | disposition home or self-care (01) ==
LOC: ED 10:27
DX: J06.9 Acute upper respiratory infection, unspecified (principal); B34.8 Other viral infections of unspecified site; Z20.822 Contact with and (suspected) exposure to COVID-19
CPT/HCPCS: 87633; 99283; 99284

== ENCOUNTER 2023-02-07 15:45 | Outpatient (CLI) | payer BC ==
[2023-02-07 17:20] LABS: BASOPHILS # (AUTO) 0.1 10^3/uL (0.0-0.1); EOSINOPHILS # (AUTO) 0.2 10^3/uL (0.0-0.7); EOSINOPHILS % (AUTO) 2.4 %; HGB - HEMOGLOBIN 12.7 g/dL (12.0-16.0); LYMPHOCYTES # (AUTO) 3.2 10^3/uL (1.5-3.5); LYMPHOCYTES % (AUTO) 39.8 %; MEAN CORPUSCULAR HEMOGLOBIN 28.8 pg (27.0-31.0); MEAN CORPUSCULAR HGB CONC 31.8 g/dL (32.0-36.0); MEAN CORPUSCULAR VOLUME 90.7 fL (81.0-99.0); MEAN PLATELET VOLUME 8.9 fL (7.9-10.8); MONOCYTES # (AUTO) 0.6 10^3/uL (0.0-1.0); MONOCYTES % (AUTO) 6.9 %; NEUTROPHILS % (AUTO) 49.7 %; PLT - PLATELET COUNT 386 10^3/uL (130-450); RED BLOOD COUNT 4.41 10^6/uL (4.20-5.40); RED CELL DISTRIBUTION WIDTH 12.8 % (12.0-15.0)
[2023-02-07 17:34] LABS: % IRON SATURATION 9 % (20-50); ALBUMIN 3.8 g/dL (3.2-5.5); ALBUMIN/GLOBULIN RATIO 1.1 (1.0-2.2); ALKALINE PHOSPHATASE 77 IU/L (42-121); ALT ALANINE AMINOTRANSFERASE 20 IU/L (10-60); AST ASPARTATE AMINOTRANSFERASE 18 IU/L (10-42); BILIRUBIN,TOTAL 0.4 mg/dL (0.2-1.0); BUN - BLOOD UREA NITROGEN 16 mg/dL (6-20); CARBON DIOXIDE - CO2 27 mmol/L (21-32); CHLORIDE 105 mmol/L (101-111); CHOL/HDL RATIO 2.6 (<4.4); CHOLESTEROL 161 mg/dL; CREATININE 0.9 mg/dL (0.4-1.0); GFR - MDRD 64 (>89); GLUCOSE 98 mg/dL (70-100); HDL CHOLESTEROL 62 mg/dL; IRON 35 ug/dL (28-170); LDL CHOLESTEROL,CALCULATED 60 mg/dL; POTASSIUM 3.8 mmol/L (3.5-5.0); SODIUM 139 mmol/L (135-145); TOTAL IRON BINDING CAPACITY 372 ug/dL (250-450); TOTAL PROTEIN 7.2 g/dL (6.7-8.2); TRANSFERRIN 266 mg/dL (192-382); TRIGLYCERIDES 196 mg/dL; VLDL CHOLESTEROL 39 mg/dL
[2023-02-07 17:41] LABS: CREATININE,URINE 156.7 mg/dL; MICROALBUM/CREATININE RATIO,UR 50.4 ug/mg (<30.0); MICROALBUMIN,URINE 7.9 mg/dL (0-300.0)
[2023-02-07 17:44] LABS: THYROID STIMULATING HORMONE 2.15 uIU/mL (0.34-5.60)
[2023-02-07 17:48] LABS: FERRITIN 36.5 ng/mL (11.0-306.8)
[2023-02-07 17:49] LABS: ESTIMATED AVERAGE GLUCOSE 111 mg/dL (70-100); HEMOGLOBIN A1c% 5.5 % (4.27-6.07)
== END 2023-02-07 15:46 | disposition home or self-care (01) ==
LOC: LAB.N 15:45
PROVIDERS: ATTEND Nurse Practitioner Family
DX: I10 Essential (primary) hypertension (principal); F41.9 Anxiety disorder, unspecified; E66.01 Morbid (severe) obesity due to excess calories; E11.9 Type 2 diabetes mellitus without complications; E78.5 Hyperlipidemia, unspecified; D50.9 Iron deficiency anemia, unspecified; E55.9 Vitamin D deficiency, unspecified; F32.A Depression, unspecified
CPT/HCPCS: 36415; 80053; 80061; 82043; 82306; 82570; 82728; 83036; 83540; 83721; 84443; 84466; 85025

== ENCOUNTER 2023-06-05 15:55 | Outpatient (CLI) | payer BC ==
--- NOTE | 2023-06-05 16:08 | Sleep Patient Instructions ---
Sleep Center Visit Summary - Patient Visit Information Reason for Visit: Annual Visit - Patient Instructions Additional Instructions: You will continue with CPAP therapy with pressure set at 6-8 cmH2O. We encourage you to continue to try to lose weight. Please follow up with the sleep care office in 1 year. - Clinic Information Contact: [facility] [address] [place] [address] [email or web address] T: [phone]
--- NOTE | 2023-06-05 16:10 | SLEEP CARE CONSULTATION ---
Information from patient questionnaire entered by Gabi Steele. I have reviewed and concur with the information entered by Gabi Steele. This document represents the service I personally performed and the decisions made by me, Kitty Redmond ARNP. History of Present Illness Service Date and Time: 06/05/2023 1555 Previous diagnosis: Moderate, Obstructive Sleep Apnea-Hypopnea Syndrome AHI: 29.4 (in 2012, 50 in 2002) Reason for follow up: annual (LAST SEEN 05/2022) Equipment type: CPAP (BLANCO Dreamstation, no replaced yet; s/u 02/2019) Equipment obtained from: Other (getting supplies on [employer]) Mask style: Nasal (Dreamwear) Mask brand: Respironics Backup mask available: Yes Last cushion change: monthly [facility]: Yes [facility] in [facility] additional information: JASON SCHULTE was diagnosed to have moderate, AHI 29.4, obstructive sleep apnea- hypopnea syndrome and returned today for CPAP therapy annual follow-up. Sleep Study - Results Prior sleep studies: Yes [facility] and [facility] [place], [place] CPAP Compliance Data - Data Reviewed with Patient Average duration of nightly device use: 7 HRS 50 MINS 31 SECS Compliance rate %: 98.3 (12/05/22-06/02/23; 178/180 days used) Current pressure setting (cmH2O): 6-8 Average residual AHI: 3.9 Central apnea: 0.1 Obstructive apnea: 0.6 Hypopnea: 3.2 Average large leak: 12 mins 34 secs Subjective Missed days of use due to: reports: travel Patient concerns: denies: aerophagia, mask discomfort, air blowing in eyes, mask leak noise, condensation in mask/hose, nasal congestion, dry mouth, nose, throat, epistaxis Observed to snore while using device: No Current pressure setting perceived as: comfortable On therapy, patient: reports: sleeping better, awakening more refreshed, being more awake and alert during the day, more rested overall. denies: drowsiness while driving Initial [place] Sleepiness Scale score: 15 (in 2012) Current [place] Sleepiness Scale score: 8 (06/05/23) Allergies and Home Medications Known drug allergies: Yes (as listed) Drug allergies reviewed: Yes Home medication list reviewed: Yes (Pantoprazole) Allergy and home medication list: Allergies amoxicillin trihydrate * [From Augmentin] Allergy (Verified 06/04/23 09:57) Rash potassium clavulanate * [From Augmentin] Allergy (Verified 06/04/23 09:57) Unknown sulfamethoxazole [From Septra] Allergy (Verified 06/04/23 09:57) Rash trimethoprim [From Septra] Allergy (Verified 06/04/23 09:57) Rash Review of Systems Review of systems same as previous: Yes (NO CHANGE) Physical Exam Vital signs obtained and entered by: GABI Pierre MA Blood Pressure: 117/67 (RIGHT ) Cuff size: wrist Heart Rate: 85 O2 Saturation: 98 Height: 5 ft 9 in Weight: 277 lb Weight change since last visit: 15 lbs loss Body Mass Index: 40.8 BMI Classification: Morbidly Obese Impression and Plan 1. Obstructive Sleep Apnea-Hypopnea Syndrome, moderate, with good treatment compliance and good apnea control. On CPAP therapy, the patient has better sleep quality and is more rested overall. Patient has significant improvement of their sleep apnea and is satisfied with current CPAP therapy. Patient denies problems with oral dryness, nasal congestion, epistaxis, skin irritation or aerophagia. Patient's apnea severity and rationale for treatment to reduce apnea, improve sleep quality and reduce cardiovascular and cerebrovascular events was reviewed. I also reviewed the benefit of consistent device use of CPAP for hypertension, arrhythmia, diabetes, depression/anxiety. 2. Obesity, unspecified. Currently patients BMI is 40.8. She lost weight. Obesity increases the risk of apnea, CPAP pressure requirements and overall health risks especially cardiovascular and diabetes. Thus patient is advised to continue to try to lose weight. * Continue auto CPAP pressure at 6-8 cmH2O * Update supply prescription * Notify me if snoring with mask or feeling that the pressure is too much or too little * Attempt to lose weight * Call this office if any problems using CPAP * Return for follow up in 1 year, or sooner if concerns arise Counseling Topics: Spare mask, Weight loss health impact Follow up with Sleep Care in: 1 year Visit Type: In Office Time Spent with Patient (minutes): 13 Provider Statement: I spent 100% of the Face to Face Visit with the patient with greater than 50% spent counseling the patient and coordination of care.
[2023-06-05 16:11] VITALS: BP 117/67; O2SAT 98
== END 2023-06-05 15:56 | disposition home or self-care (01) ==
LOC: SC 15:55
PROVIDERS: ATTEND Nurse Practitioner Family
DX: G47.33 Obstructive sleep apnea (adult) (pediatric) (principal); E66.01 Morbid (severe) obesity due to excess calories; Z68.41 Body mass index [BMI] 40.0-44.9, adult
CPT/HCPCS: 99212

== ENCOUNTER 2023-10-22 13:57 | Outpatient (CLI) | payer BC ==
--- NOTE | 2023-10-23 09:39 | Mammography Report ---
BILATERAL DIGITAL SCREENING MAMMOGRAM 3D/2D: 10/22/2023 CLINICAL: Routine screening. Comparison is made to exams dated: 05/12/2020 mammogram, 07/12/2022 mammogram, 02/11/2019 mammogram, mammogram, 07/05/2016 mammogram, and 10/15/2014 mammogram - [facility]. There are scattered areas of fibroglandular density in both breasts (category b / 25%-50% glandular t issue). No significant masses, calcifications, or other findings are seen in either breast. There has been no significant interval change. IMPRESSION: NEGATIVE There is no mammographic evidence of malignancy. A 1 year screening mammogram is recommended. Based on the Tyrer Cuzick model (a risk assessment model) the patient's lifetime risk is 10.3% and he r 10 year risk is 4.5%. According to the ACR, ACS, and NCCN guidelines, an annual breast MRI exam gaby ng with mammogram is recommended if the patient's lifetime risk is 20% or greater. This exam was interpreted at Station ID: [id number]. NOTE: For mammograms, a report in lay terms will be sent to the patient. Approximately 15% of breast malignancies will not be visualized mammographically. In the management of a palpable breast mass, a negative mammogram must not discourage biopsy of a clinically suspicious lesion. Electronically Signed By: Maraym gonzalez/liz:10/22/2023 14:47:16 letter sent: No_Letter ACR BI-RADS Category 1: Negative 3341F PARENCHYMAL PATTERN: (A) - The breast(s) demonstrate(s) scattered fibroglandular densities. BI-RADS CATEGORY: (1) - 1 Mammogram [id number] 1 year screening LATERALITY: (B)
== END 2023-10-22 13:58 | disposition home or self-care (01) ==
LOC: DI 13:57
PROVIDERS: ATTEND Physician Assistant Medical
DX: Z12.31 Encounter for screening mammogram for malignant neoplasm of breast (principal); R92.323 Mammographic fibroglandular density, bilateral breasts

== ENCOUNTER 2023-11-10 10:53 | Outpatient (CLI) | payer BC ==
[2023-11-10 11:09] LABS: BASOPHILS # (AUTO) 0.1 10^3/uL (0.0-0.1); BASOPHILS % (AUTO) 0.7 %; EOSINOPHILS # (AUTO) 0.2 10^3/uL (0.0-0.7); EOSINOPHILS % (AUTO) 3.1 %; HCT - HEMATOCRIT 40.8 % (37.0-47.0); HGB - HEMOGLOBIN 12.9 g/dL (12.0-16.0); LYMPHOCYTES # (AUTO) 2.7 10^3/uL (1.5-3.5); LYMPHOCYTES % (AUTO) 37.2 %; MEAN CORPUSCULAR HEMOGLOBIN 28.2 pg (27.0-31.0); MEAN CORPUSCULAR HGB CONC 31.6 g/dL (32.0-36.0); MEAN CORPUSCULAR VOLUME 89.1 fL (81.0-99.0); MEAN PLATELET VOLUME 8.3 fL (7.9-10.8); MONOCYTES # (AUTO) 0.4 10^3/uL (0.0-1.0); MONOCYTES % (AUTO) 5.4 %; NEUTROPHILS # (AUTO) 3.8 10^3/uL (1.5-6.6); NEUTROPHILS % (AUTO) 53.3 %; PLT - PLATELET COUNT 333 10^3/uL (130-450); RED BLOOD COUNT 4.58 10^6/uL (4.20-5.40); RED CELL DISTRIBUTION WIDTH 13.2 % (12.0-15.0); WHITE BLOOD COUNT 7.2 x10^3/uL (4.8-10.8)
[2023-11-10 11:27] LABS: ALBUMIN 4.1 g/dL (3.2-5.5); ALBUMIN/GLOBULIN RATIO 1.5 (1.0-2.2); ALKALINE PHOSPHATASE 65 IU/L (42-121); ALT ALANINE AMINOTRANSFERASE 17 IU/L (10-60); AST ASPARTATE AMINOTRANSFERASE 16 IU/L (10-42); BILIRUBIN,TOTAL 0.4 mg/dL (0.2-1.0); BUN - BLOOD UREA NITROGEN 14 mg/dL (6-20); CALCIUM 9.5 mg/dL (8.5-10.3); CARBON DIOXIDE - CO2 24 mmol/L (21-32); CHLORIDE 106 mmol/L (101-111); CHOL/HDL RATIO 2.4 (<4.4); CHOLESTEROL 162 mg/dL; CREATININE 0.9 mg/dL (0.6-1.3); GFR - MDRD 63 (>89); GLUCOSE 121 mg/dL (74-104); HDL CHOLESTEROL 68 mg/dL; LDL CHOLESTEROL,CALCULATED 69 mg/dL; POTASSIUM 3.7 mmol/L (3.5-4.5); SODIUM 139 mmol/L (135-145); TOTAL PROTEIN 6.8 g/dL (6.4-8.9); TRIGLYCERIDES 124 mg/dL (48-352); VLDL CHOLESTEROL 25 mg/dL
[2023-11-10 11:28] LABS: CREATININE,URINE 194.6 mg/dL; MICROALBUM/CREATININE RATIO,UR 4.1 ug/mg (<30.0); MICROALBUMIN,URINE 0.8 mg/dL
[2023-11-10 11:38] LABS: THYROID STIMULATING HORMONE 1.67 uIU/mL (0.34-5.60)
[2023-11-10 11:44] LABS: ESTIMATED AVERAGE GLUCOSE 105 mg/dL (70-100); HEMOGLOBIN A1c% 5.3 % (4.27-6.07)
== END 2023-11-10 10:54 | disposition home or self-care (01) ==
LOC: LAB 10:53
PROVIDERS: ATTEND Physician Assistant Medical
DX: Z00.00 Encounter for general adult medical examination without abnormal findings (principal); E11.9 Type 2 diabetes mellitus without complications; E78.2 Mixed hyperlipidemia
CPT/HCPCS: 36415; 80053; 80061; 82043; 82570; 83036; 83721; 84443; 85025

== ENCOUNTER 2024-03-25 13:44 | Outpatient (CLI) | payer BC ==
--- NOTE | 2024-03-25 14:29 | Sleep Patient Instructions ---
Sleep Center Visit Summary - Patient Visit Information Reason for Visit: 10-month follow-up for CPAP therapy - Patient Instructions Additional Instructions: You were here for follow up of CPAP therapy. You will be continued on CPAP therapy with pressure at 6-8 cmH2O. A supply prescription will be sent to your new DME supplier. I have added an order to update your PAP machine. Please call the office to schedule a compliance follow up once you get your new device. You have been give a prescription for a CPAP if you decide to purchase it on your own. You should follow up with sleep care one month after obtaining new device. You may contact us sooner for any questions or concerns. - Clinic Information Contact: [facility] [address] [place] [address] [email or web address] T: [phone]
--- NOTE | 2024-03-25 14:35 | SLEEP CARE CONSULTATION ---
Information from patient questionnaire entered by Gabi Steele. I have reviewed and concur with the information entered by Gabi Steele. This document represents the service I personally performed and the decisions made by me, Kitty Redmond ARNP. History of Present Illness Service Date and Time: 03/25/2024 1344 Previous diagnosis: Moderate, Obstructive Sleep Apnea-Hypopnea Syndrome AHI: 29.4 (in 2012, 50 in 2002) Reason for follow up: other (10 MONTH F/U) Equipment type: CPAP ([employer]AN[employer] Dreamstation, no replaced yet; s/u 02/2019) Equipment obtained from: Other (getting supplies on [employer]) Mask style: Nasal (Dreamwear) Mask brand: Respironics Backup mask available: No Last cushion change: within last month Prior sleep studies: Yes Year and Where: 2012 - [facility] , 2002 in [facility] additional information: JASON SCHULTE was diagnosed to have moderate, AHI 29.4, obstructive sleep apnea- hypopnea syndrome and returned today for CPAP therapy 10 month follow-up. Sleep Study - Results Prior sleep studies: Yes [facility] and [facility]: [facility] [place], [place] CPAP Compliance Data - Data Reviewed with Patient Average duration of nightly device use: 7 HRS 57 MINS 2 SECS Compliance rate %: 93.4 (03/23/23-03/21/24) Current pressure setting (cmH2O): 6-8 (90% avg 8) Average residual AHI: 3.8 Central apnea: 0.3 Obstructive apnea: 1 Hypopnea: 2.5 Average large leak: 14 mins 7 secs Subjective Patient concerns: reports: mask discomfort, mask leak noise, dry mouth, nose, throat (dry mouth, not using humidifier). denies: aerophagia, air blowing in eyes, condensation in mask/hose, nasal congestion, epistaxis Observed to snore while using device: Yes Current pressure setting perceived as: too high On therapy, patient: reports: sleeping better, awakening more refreshed, being more awake and alert during the day, more rested overall. denies: drowsiness while driving Initial [place] Sleepiness Scale score: 15 (in 2012) Current [place] Sleepiness Scale score: 9 Allergies and Home Medications Known drug allergies: Yes (as listed) Drug allergies reviewed: Yes Home medication list reviewed: Yes (as updated in EMR) Allergy and home medication list: Allergies amoxicillin trihydrate * [From Augmentin] Allergy (Verified 03/25/24 13:44) Rash potassium clavulanate * [From Augmentin] Allergy (Verified 03/25/24 13:44) Unknown sulfamethoxazole [From Septra] Allergy (Verified 03/25/24 13:44) Rash trimethoprim [From Septra] Allergy (Verified 03/25/24 13:44) Rash Review of Systems Review of systems same as previous: Yes (NO CHANGE) Physical Exam Vital signs obtained and entered by: GABI Pierre MA Blood Pressure: 122/72 (RIGHT ARM) Cuff size: long Heart Rate: 87 O2 Saturation: 96 Height: 5 ft 9 in Weight: 267 lb 3.2 oz Body Mass Index: 39.4 BMI Classification: Obese Impression and Plan 1. Obstructive Sleep Apnea-Hypopnea Syndrome, moderate, with good treatment compliance and good apnea control. On CPAP therapy, the patient has better sleep quality and is more rested overall. Her Dreamstation has not been replace but was received in 02/2019. She has been using an inline filter as a safety precaution. She is not sure if she would like to use a DME supplier or just purchase her machine on her own. The patients CPAP is over 5 years old and of reasonable use. Thus, the CPAP will be updated. The new CPAPs also have a better humidity system which could assist control of patients dryness symptoms. A DWO prescription will be made. Compliance guidelines for new device and follow up discussed. Patient's apnea severity and rationale for treatment to reduce apnea, improve sleep quality and reduce cardiovascular and cerebrovascular events was reviewed. I also reviewed the benefit of consistent device use of CPAP for hypertension, arrhythmia, diabetes, depression/anxiety. 2. Obesity, unspecified. Currently patients BMI is 39.4. Obesity increases the risk of apnea, CPAP pressure requirements and overall health risks especially cardiovascular and diabetes. Thus patient is advised to lose weight. * Continue auto CPAP pressure at 6-8 cmH2O * Update machine * Update supplies * Transfer DME or purchase CPAP on own * Notify me if snoring with mask or feeling that the pressure is too much or too little * Attempt to lose weight * Call this office if any problems using CPAP * Return for follow up one month after obtaining new device, or sooner if concerns arise Counseling Topics: Spare mask, Weight loss health impact Prescriptions: Auto CPAP, Device supplies Plan: update machine and followup Visit Type: In Office Time Spent with Patient (minutes): 29 Provider Statement: I spent 100% of the Face to Face Visit with the patient with greater than 50% spent counseling the patient and coordination of care.
[2024-03-25 15:19] VITALS: BP 122/72; O2SAT 96
== END 2024-03-25 13:45 | disposition home or self-care (01) ==
LOC: SC 13:44
PROVIDERS: ATTEND Nurse Practitioner Family
DX: G47.33 Obstructive sleep apnea (adult) (pediatric) (principal); E66.9 Obesity, unspecified; Z68.39 Body mass index [BMI] 39.0-39.9, adult
CPT/HCPCS: 99212; 99213

== ENCOUNTER 2024-07-14 12:13 | Inpatient (IN) ==
[2024-07-14 12:58] LABS: BASOPHILS # (AUTO) 0.1 10^3/uL (0.0-0.1); BASOPHILS % (AUTO) 0.4 %; EOSINOPHILS # (AUTO) 0.1 10^3/uL (0.0-0.7); EOSINOPHILS % (AUTO) 0.6 %; HCT - HEMATOCRIT 41.6 % (37.0-47.0); HGB - HEMOGLOBIN 13.3 g/dL (12.0-16.0); LYMPHOCYTES # (AUTO) 1.8 10^3/uL (1.5-3.5); LYMPHOCYTES % (AUTO) 11.3 %; MEAN CORPUSCULAR HEMOGLOBIN 28.4 pg (27.0-31.0); MEAN CORPUSCULAR VOLUME 88.7 fL (81.0-99.0); MEAN PLATELET VOLUME 8.4 fL (7.9-10.8); MONOCYTES # (AUTO) 1.1 10^3/uL (0.0-1.0); NEUTROPHILS # (AUTO) 12.9 10^3/uL (1.5-6.6); NEUTROPHILS % (AUTO) 80.2 %; PLT - PLATELET COUNT 374 10^3/uL (130-450); RED BLOOD COUNT 4.69 10^6/uL (4.20-5.40); RED CELL DISTRIBUTION WIDTH 13.2 % (12.0-15.0); WHITE BLOOD COUNT 16.1 x10^3/uL (4.8-10.8)
[2024-07-14 13:15] LABS: ALBUMIN 4.2 g/dL (3.2-5.5); ALBUMIN/GLOBULIN RATIO 1.5 (1.0-2.2); ALKALINE PHOSPHATASE 62 IU/L (42-121); ALT ALANINE AMINOTRANSFERASE 11 IU/L (10-60); AST ASPARTATE AMINOTRANSFERASE 12 IU/L (10-42); BILIRUBIN,TOTAL 0.5 mg/dL (0.2-1.0); BUN - BLOOD UREA NITROGEN 10 mg/dL (6-20); CALCIUM 9.5 mg/dL (8.5-10.3); CARBON DIOXIDE - CO2 25 mmol/L (21-32); CHLORIDE 105 mmol/L (101-111); CREATININE 0.8 mg/dL (0.6-1.3); GFR - MDRD 73 (>89); GLUCOSE 112 mg/dL (74-104); POTASSIUM 3.9 mmol/L (3.5-4.5); SODIUM 138 mmol/L (135-145)
[2024-07-14 13:20] LABS: LIPASE < 10 U/L (11-82)
[2024-07-14] MEDS ORDERED: iohexoL-300 100 ML VIAL ONE (13:28)
--- NOTE | 2024-07-14 15:48 | ED Physician Documentation ---
History of Present Illness Stated complaint Stated Complaint: RT ABD PX Chief complaint Chief Complaint: Abd Pain Additonal information Additional information: 63 yo female with hx afib on xarelto c/o RLQ abd pain x 2 days last week. Got better but much more severe starting 0830 with morning. +N, no vomit/diarrhea. No urinary complaints. No abd surgeries in the past. Doesn't recall last BM. Meds/Allgy Home Medications Ambulatory Orders Medication Instructions Recorded Confirmed duloxetine 60 mg capsule,delayed 30 mg PO DAILY 02/01/15 06/28/24 release metformin 850 mg tablet 850 mg PO BID 02/01/15 06/28/24 (Glucophage) diltiazem HCl 120 mg 120 mg PO DAILY #30 caps 05/23/17 06/28/24 capsule,extended release 24 hr bupropion HCl 300 mg 24 hr tablet, See Rx Instructions .Route .COMPLEX 06/05/22 06/28/24 extended release (Wellbutrin XL) lansoprazole 15 mg capsule,delayed See Rx Instructions .Route .COMPLEX 03/25/24 06/28/24 release famotidine 20 mg tablet 20 mg .Route BID 06/28/24 06/28/24 gabapentin 300 mg capsule mg PO 06/28/24 06/28/24 oxybutynin chloride 5 mg tablet mg PO 06/28/24 06/28/24 rivaroxaban 20 mg tablet (Xarelto) mg PO 06/28/24 06/28/24 trazodone 100 mg tablet mg PO 06/28/24 06/28/24 celecoxib 100 mg capsule 100 mg PO BID #60 caps 06/30/24 06/30/24 hydroxyzine HCl 50 mg tablet 50 mg PO .qhs PRN 06/30/24 06/30/24 Allergies Allergies Allergy/AdvReac Type Severity Reaction Status Date / Time amoxicillin trihydrate * Allergy Rash Verified 07/14/24 12:22 (From Augmentin) potassium clavulanate * Allergy Unknown Verified 07/14/24 12:22 (From Augmentin) sulfamethoxazole (From Allergy Rash Verified 07/14/24 12:22 Septra) trimethoprim (From Aprra) Allergy Rash Verified 07/14/24 12:22 [facility] Medical History Medical History (Updated 07/14/24 @ 17:11 by Amaury Lazcano MD) Combined hyperlipidemia associated with type 2 diabetes mellitus (11/18/17) Depression with anxiety (05/24/17) Scoliosis (05/24/17) Obesity (05/24/17) Insomnia (05/24/17) Diabetes mellitus type 2, controlled (05/24/17) Anemia (11/18/17) Borderline hyperlipidemia IBS (irritable bowel syndrome) Family History Family History (Updated 06/28/24 @ 15:52 by Krupa Amanda MA) Maternal grandmother Breast cancer Mother High blood pressure Depressed Father Depressed Daughter No problems noted. Other Sciatica Social History Social History Smoking Status: Never smoker Do you dip or chew tobacco?: No Patient requests smoking cessation consult: No Initiate information on smoking cessation: No Living arrangement: At home Living Condition: With spouse/s.o. Relationship: Do you feel safe in your home environment?: Yes Suffered physical, verbal, emotional, or financial abuse?: No History of Abuse: No Frequency: Occasional POLST Patient has POLST: No POLST Status: Full Code Exam Constitutional normal general appearance and no apparent distress Respiratory breath sounds equal bilaterally and normal respiratory effort Cardiovascular normal heart rate noted, regular rhythm noted and no murmur Gastrointestinal RUQ and RLQ TTP. with hypoactive sounds, no surg signs. Results Vitals Vitals: Vital Signs - 24 hr 07/14/24 12:16 07/14/24 15:54 Temperature 36.6 C Temperature Source Temporal Artery Scan Pulse Rate 80 Respiratory Rate 20 Blood Pressure 131/76 H O2 Saturation 97 O2 Source Room air Pain Intensity 8 8 Oxygen O2 Source Room air Labs Labs: Laboratory Tests 07/14/24 07/14/24 12:54 14:40 WBC 16.1 H RBC 4.69 Hgb 13.3 Hct 41.6 MCV 88.7 MCH 28.4 MCHC 32.0 RDW 13.2 Plt Count 374 MPV 8.4 Neut # (Auto) 12.9 H Lymph # (Auto) 1.8 [place] # (Auto) 1.1 H Eos # (Auto) 0.1 Baso # (Auto) 0.1 Absolute Nucleated RBC 0.00 Nucleated RBC % 0.0 Sodium 138 Potassium 3.9 Chloride 105 Carbon Dioxide 25 Anion Gap 8.0 BUN 10 Creatinine 0.8 Estimated GFR (MDRD) 73 L Glucose 112 H Calcium 9.5 Total Bilirubin 0.5 AST 12 ALT 11 Alkaline Phosphatase 62 Total Protein 7.0 Albumin 4.2 Globulin 2.8 Albumin/Globulin Ratio 1.5 Lipase < 10 L Urine Color YELLOW Urine Clarity CLOUDY Urine pH 6.0 Ur Specific [place] >=1.030 H Urine Protein NEGATIVE Urine Glucose (UA) NEGATIVE Urine Ketones TRACE Urine Occult Blood NEGATIVE Urine Nitrite NEGATIVE Urine Bilirubin NEGATIVE Urine Urobilinogen 0.2 (NORMAL) Ur Leukocyte Esterase TRACE H Urine RBC None Seen Urine WBC 0-3 Ur Squamous Epith Cells RARE Squamous Amorphous Sediment Marked Urine Bacteria None Seen Ur Microscopic Review INDICATED Urine Culture Comments INDICATED Rads (name of study) CT A/P +appy: Relevant Findings:: Final report received and EMP independent interpretation of test (+appy) PD Medical Decision Making ED course ED course: DDX: AAA, diverticulitis, appy, americo, kidney stone, sbo. plan ct a/p, pain control. CBC with leukocystosis and left shifts. CMP/lipase nl. Subsequently her CT is positive for appendicitis. Given her current status on Xarelto talked with him Graves but he plans to keep her for 2 days and let the Xarelto washout before surgery. Placed on Cipro and Flagyl noting penicillin allergy. Discharge Plan Discharge Patient Disposition: 67 [facility] DC/Xfer Condition: Stable Clinical Impression: Appendicitis Qualifiers: Appendicitis type: acute appendicitis Acute appendicitis type: unspecified acute appendicitis type Qualified Code(s): K35.80 - Unspecified acute appendicitis Prescriptions: No Action metformin [Glucophage] 850 MG tablet 850 mg PO BID duloxetine 60 MG capsule,delayed release(DR/EC) 30 mg PO DAILY diltiazem HCl 120 MG capsule,extended release 24hr 120 mg PO DAILY Qty: 30 0RF bupropion HCl [Wellbutrin XL] 300 MG tablet extended release 24 hr See Rx Instructions .Route .COMPLEX Rx Instructions: take po mouth 1 xday lansoprazole 15 MG capsule,delayed release(DR/EC) See Rx Instructions .Route .COMPLEX Rx Instructions: UNKNOWN DOSE famotidine 20 mg tablet 20 mg .Route BID Rx Instructions: 20 mg twice a day; Xarelto 20 mg tablet PO oxybutynin chloride 5 mg tablet PO Rx Instructions: Take one by mouth twice daily for bladder control trazodone 100 mg tablet PO Rx Instructions: TAKE ONE (1) TO TWO (2) TABS BY MOUTH EVERY NIGHT AT BEDTIME NEEDED gabapentin 300 mg capsule PO Rx Instructions: TAKE ONE (1) CAPSULE BY MOUTH ONCE NIGHTLY AT BEDTIME celecoxib 100 mg capsule 100 mg PO BID Qty: 60 0RF hydroxyzine HCl 50 mg tablet 50 mg PO .qhs PRN Rx Instructions: 1 tablet by mouth every night at bedtime as needed for itching Print Language: Albanian Stand Alone Forms: PCP List
[2024-07-14] MEDS: HYDROmorphone 1 MG/ML CARPUJECT IVP STA ×2 (15:54→17:35)
[2024-07-14 15:57] LABS: BILIRUBIN,URINE NEGATIVE (NEGATIVE); GLUCOSE, URINE (UA) NEGATIVE (NEGATIVE); KETONES,URINE (UA) TRACE mg/dL (NEGATIVE); LEUKOCYTE ESTERASE, URINE TRACE (NEGATIVE); NITRITE,URINE NEGATIVE (NEGATIVE); OCCULT BLOOD,URINE NEGATIVE (NEGATIVE); PROTEIN,URINE NEGATIVE (NEGATIVE); UROBILINOGEN,URINE 0.2 (NORMAL) E.U./dL (NORMAL)
[2024-07-14 16:00] LABS: CLARITY,URINE CLOUDY (CLEAR)
[2024-07-14 16:07] LABS: RBC,URINE None Seen /HPF (0-5); SQUAMOUS EPITHELIAL CELL,UR RARE Squamous (<= Few); WBC,URINE 0-3 /HPF (0-5)
[2024-07-14 16:08] LABS: AMORPHOUS SEDIMENT,UR Marked /LPF; BACTERIA,URINE None Seen /HPF (None Seen)
[2024-07-14] MEDS: iohexoL-300 100 ML VIAL IVP ONE (16:33)
--- NOTE | 2024-07-14 17:02 | CT Report ---
PROCEDURE: CT Abdomen/Pelvis W INDICATIONS: RLQ pain CONTRAST: 100ml [id number]. TECHNIQUE: After the administration of intravenous contrast, a CT scan of the abdomen and pelvis was performed. Images were recorded and evaluated at appropriate window settings. Reformats: coronal and sagittal. F or radiation dose reduction, the following was used: automated exposure control, adjustment of mA and /or kV according to patient size. COMPARISON: None. FINDINGS: Image quality: Diagnostic. Lower chest: Moderate hiatal hernia. Liver: No solid mass. Gallbladder: No radiopaque stones or wall thickening. Biliary tree: No intrahepatic or extrahepatic dilation, accounting for age. Spleen: No splenomegaly. Pancreas: No pancreatic ductal dilation. Adrenals: No adrenal nodule. Kidneys and ureters: No hydronephrosis. No renal cystic lesion which requires follow up. No solid mas s. Stomach, bowel and peritoneum: The appendix is inflamed, dilated with a diffusely thickened wall. The re is periappendiceal fat stranding but no adjacent free air or abscess to suggest perforation. Suspe cted 1 cm obstructing appendicolith at the base. Lymph nodes: No central or retroperitoneal adenopathy. Vessels: No infrarenal aortic aneurysm. Patent portal vein. PELVIS Reproductive organs: Unremarkable. Bladder: No abnormal wall thickening, accounting for underdistention. Pelvic lymph nodes: No pelvic adenopathy by size criteria. Bones: No aggressive osseous abnormality. Other: Small umbilical hernia containing fat. IMPRESSION: Uncomplicated acute appendicitis, without evidence of perforation. Suspected appendicolith at the bas e. Reviewed by: Juan Nogueira MD on 07/14/2024 5:01 PM PST Approved by: Juan Nogueira MD on 07/14/2024 5:01 PM PST Station ID: [id number]
[2024-07-14] MEDS: KETOROLAC 15 MG/ML VIAL IVP STA (17:35)
[2024-07-14] MEDS: metroNIDAZOLE 500 MG/100 ML 500 MG/100 ML BAG IV ONE (17:41)
[2024-07-14] MEDS: CIPROFLOXACIN 400 MG/200 ML 400 MG/200 ML BAG IV STA (17:42)
[2024-07-14] MEDS ORDERED: ONDANSETRON ODT 4 MG TABLET TL PRN (18:19)
--- NOTE | 2024-07-14 18:38 | CONSULTATION NOTE ---
Chief Complaint Chief Complaint Chief Complaint: abdominal pain History of Present Illness Admitted From Admitted From:: ed History Obtained From Records Reviewed: yes History obtained from: pt Exam Limitations: none History of Present Illness HPI Comment/Other: rlq abdominal pain 2 weeks ago for 2 days. improved until today when pain came back and is worse. no n/v. history a fib and takes xarelto Meds/Allgy Home Medications Ambulatory Orders Medication Instructions Recorded Confirmed duloxetine 60 mg capsule,delayed 30 mg PO DAILY 02/01/15 06/28/24 release metformin 850 mg tablet 850 mg PO BID 02/01/15 06/28/24 (Glucophage) diltiazem HCl 120 mg 120 mg PO DAILY #30 caps 05/23/17 06/28/24 capsule,extended release 24 hr bupropion HCl 300 mg 24 hr tablet, See Rx Instructions .Route .COMPLEX 06/05/22 06/28/24 extended release (Wellbutrin XL) lansoprazole 15 mg capsule,delayed See Rx Instructions .Route .COMPLEX 03/25/24 06/28/24 release famotidine 20 mg tablet 20 mg .Route BID 06/28/24 06/28/24 gabapentin 300 mg capsule mg PO 06/28/24 06/28/24 oxybutynin chloride 5 mg tablet mg PO 06/28/24 06/28/24 rivaroxaban 20 mg tablet (Xarelto) mg PO 06/28/24 06/28/24 trazodone 100 mg tablet mg PO 06/28/24 06/28/24 celecoxib 100 mg capsule 100 mg PO BID #60 caps 06/30/24 06/30/24 hydroxyzine HCl 50 mg tablet 50 mg PO .qhs PRN 06/30/24 06/30/24 Allergies Allergies Allergy/AdvReac Type Severity Reaction Status Date / Time amoxicillin trihydrate * Allergy Rash Verified 07/14/24 12:22 (From Augmentin) potassium clavulanate * Allergy Unknown Verified 07/14/24 12:22 (From Augmentin) sulfamethoxazole (From Allergy Rash Verified 07/14/24 12:22 Septra) trimethoprim (From Septra) Allergy Rash Verified 07/14/24 12:22 [facility] Medical History Medical History (Updated 07/14/24 @ 17:11 by Amaury Lazcano MD) Combined hyperlipidemia associated with type 2 diabetes mellitus (11/18/17) Depression with anxiety (05/24/17) Scoliosis (05/24/17) Obesity (05/24/17) Insomnia (05/24/17) Diabetes mellitus type 2, controlled (05/24/17) Anemia (11/18/17) Borderline hyperlipidemia IBS (irritable bowel syndrome) Family History Family History (Updated 06/28/24 @ 15:52 by Krupa Amanda MA) Maternal grandmother Breast cancer Mother High blood pressure Depressed Father Depressed Daughter No problems noted. Other Sciatica Social History Social History Smoking Status: Never smoker Do you dip or chew tobacco?: No Patient requests smoking cessation consult: No Initiate information on smoking cessation: No Living arrangement: At home Living Condition: With spouse/s.o. Relationship: Do you feel safe in your home environment?: Yes Suffered physical, verbal, emotional, or financial abuse?: No History of Abuse: No Frequency: Occasional POLST Patient has POLST: No POLST Status: Full Code Results Lab Results Lab results reviewed: Yes 07/14/24 12:54 07/14/24 12:54 Other Lab Results: Lab Results x24hrs 07/14/24 07/14/24 Range/Units 14:40 12:54 WBC 16.1 H (4.8-10.8) x10^3/uL RBC 4.69 (4.20-5.40) 10^6/uL Hgb 13.3 (12.0-16.0) g/dL Hct 41.6 (37.0-47.0) % MCV 88.7 (81.0-99.0) fL MCH 28.4 (27.0-31.0) pg MCHC 32.0 (32.0-36.0) g/dL RDW 13.2 (12.0-15.0) % Plt Count 374 (130-450) 10^3/uL MPV 8.4 (7.9-10.8) fL Neut # (Auto) 12.9 H (1.5-6.6) 10^3/uL Lymph # (Auto) 1.8 (1.5-3.5) 10^3/uL [place] # (Auto) 1.1 H (0.0-1.0) 10^3/uL Eos # (Auto) 0.1 (0.0-0.7) 10^3/uL Baso # (Auto) 0.1 (0.0-0.1) 10^3/uL Absolute Nucleated RBC 0.00 x10^3/uL Nucleated RBC % 0.0 /100WBC Sodium 138 (135-145) mmol/L Potassium 3.9 (3.5-4.5) mmol/L Chloride 105 (101-111) mmol/L Carbon Dioxide 25 (21-32) mmol/L Anion Gap 8.0 (6-13) BUN 10 (6-20) mg/dL Creatinine 0.8 (0.6-1.3) mg/dL Estimated GFR (MDRD) 73 L (>89) Glucose 112 H (74-104) mg/dL Calcium 9.5 (8.5-10.3) mg/dL Total Bilirubin 0.5 (0.2-1.0) mg/dL AST 12 (10-42) IU/L ALT 11 (10-60) IU/L Alkaline Phosphatase 62 (42-121) IU/L Total Protein 7.0 (6.4-8.9) g/dL Albumin 4.2 (3.2-5.5) g/dL Globulin 2.8 (2.1-4.2) g/dL Albumin/Globulin Ratio 1.5 (1.0-2.2) Lipase < 10 L (11-82) U/L Urine Color YELLOW Urine Clarity CLOUDY (CLEAR) Urine pH 6.0 (5.0-7.5) PH Ur Specific [place] >=1.030 H (1.002-1.030) Urine Protein NEGATIVE (NEGATIVE) mg/dL Urine Glucose (UA) NEGATIVE (NEGATIVE) mg/dL Urine Ketones TRACE (NEGATIVE) mg/dL Urine Occult Blood NEGATIVE (NEGATIVE) Urine Nitrite NEGATIVE (NEGATIVE) Urine Bilirubin NEGATIVE (NEGATIVE) Urine Urobilinogen 0.2 (NORMAL) (NORMAL) E.U./dL Ur Leukocyte Esterase TRACE H (NEGATIVE) Urine RBC None Seen (0-5) /HPF Urine WBC 0-3 (0-5) /HPF Ur Squamous Epith Cells RARE Squamous (<= Few) Amorphous Sediment Marked /LPF Urine Bacteria None Seen (None Seen) /HPF Ur Microscopic Review INDICATED Urine Culture Comments INDICATED Diagnostic Imaging Results Diagnostic Imaging Results: positive Read independently (appendicitis with surrounding fluid and very large area inflammatory change. small bowel tightly adjacent. no abscess at this time. findings discussed with her and family) Exam Constitutional normal general appearance, no apparent distress and alert HENMT normocephalic and head/scalp atraumatic Eyes PERRL, EOMs intact bilaterally and no scleral icterus Respiratory normal respiratory effort Cardiovascular irr Gastrointestinal nondistended per pt tender rlq Neurology speech normal and GCS 15 Psychiatry oriented x3, thought process normal, cooperative, affect normal and memory normal Conclusion/Plan Problem List (1) Appendicitis: Plan: significant appendicitis with surrounding fluid and large area surrounding inflammation. agree with ED MD likely appendicitis x 2 weeks. she is currently anticoagulated Qualifiers: Acute appendicitis type: unspecified acute appendicitis type A ppendicitis type: acute appendicitis Qualified Code(s): K35.80 - Unspecified acute appendicitis Plan observation, hold xarelto, iv abxs. hopefully she will improve and plan interval appendectomy once the the significant inflammation has resolved. risk needing urgent surgery and developing an abscess also discussed Lab Results Lab results reviewed: Yes 07/14/24 12:54 07/14/24 12:54 Diagnostic Imaging Results Diagnostic Imaging Results: positive Read independently (appendicitis with surrounding fluid and very large area inflammatory change. small bowel tightly adjacent. no abscess at this time. findings discussed with her and family)
[2024-07-14] MEDS ORDERED: traZODone 50 MG TABLET PO SCH (19:00)
[2024-07-14] MEDS: D5.45NS W/20 MEQ KCL 1,000 ML IV SCH (21:34)
[2024-07-14] MEDS: GABAPENTIN 100 MG CAPSULE PO SCH (21:34)
[2024-07-14] MEDS: ACETAMINOPHEN 325 MG TABLET PO PRN (22:48)
[2024-07-14] MEDS: oxyCODONE 5 MG TABLET PO PRN (22:48)
[2024-07-15] MEDS: diphenhydrAMINE 25 MG CAPSULE PO PRN (00:38)
[2024-07-15] MEDS: FAMOTIDINE 20 MG TABLET PO SCH (00:38)
[2024-07-15] MEDS: SODIUM CHLORIDE FLUSH 0.9% 10 ML SYRINGE IVP SCH (00:42)
[2024-07-15] MEDS: HYDROmorphone 0.5 MG/0.5 ML SYRINGE IVP PRN (00:50)
[2024-07-15] MEDS: metroNIDAZOLE 500 MG/100 ML 500 MG/100 ML BAG IV SCH (02:15)
[2024-07-15] MEDS: SODIUM CHLORIDE FLUSH 0.9% 10 ML SYRINGE IVP PRN (02:40)
[2024-07-15] MEDS: ONDANSETRON 4 MG/2 ML VIAL IVP PRN (04:16)
[2024-07-15] MEDS: PANTOPRAZOLE 40 MG TABLET PO SCH (06:24)
[2024-07-15] MEDS: CIPROFLOXACIN 400 MG/200 ML 400 MG/200 ML BAG IV SCH (06:26)
[2024-07-15] MEDS: polyethylene glycoL 3350 17 GM PACKET PO SCH (08:48)
[2024-07-15] MEDS: DULoxetine 30 MG CAPSULE PO SCH (08:48)
[2024-07-15] MEDS: diltiaZEM CD 120 MG CAPSULE PO SCH (08:48)
[2024-07-15] MEDS: buPROPion XL 150 MG TABLET PO SCH (08:48)
--- NOTE | 2024-07-15 09:31 | PROVIDER PROGRESS NOTE ---
Subjective Subjective Pt reports feeling: No change Subjective: mild nausea and mild to moderate pain Current Medications Current Medications Current Medications: Current Medications Generic Name Dose Route Start Last Admin Trade Name Freq PRN Reason Stop Dose Admin Acetaminophen 650 mg 07/14/24 18:19 07/15/24 04:16 Acetaminophen 325 Mg Tablet PO 650 mg Q4HR PRN Administration Pain 1 to 4, or Fever Bupropion HCl 150 mg 07/15/24 09:00 07/15/24 08:48 Bupropion Xl 150 Mg Tablet PO 150 mg DAILY TARYN Administration Diltiazem HCl 120 mg 07/15/24 09:00 07/15/24 08:48 Diltiazem Cd 120 Mg Capsule PO 120 mg DAILY TARYN Administration Diphenhydramine HCl 25 mg 07/14/24 23:42 07/15/24 00:38 Diphenhydramine 25 Mg Capsule PO 25 mg Q6HR PRN Administration Allergy Symptoms Duloxetine HCl 30 mg 07/15/24 09:00 07/15/24 08:48 Duloxetine 30 Mg Capsule PO 30 mg DAILY TARYN Administration Famotidine 20 mg 07/14/24 23:45 07/15/24 08:48 Famotidine 20 Mg Tablet PO 20 mg BID TARYN Administration Gabapentin 100 mg 07/14/24 22:00 07/15/24 06:24 Gabapentin 100 Mg Capsule PO 100 mg TID TARYN Administration Hydromorphone HCl 0.5 mg 07/14/24 18:19 07/15/24 08:51 Hydromorphone 0.5 Mg/0.5 Ml Syringe IVP 0.5 mg Q2H PRN Administration Pain 8 to 10 Potassium Chloride/Dextrose/Sod Cl 1,000 mls @ 100 mls/hr 07/14/24 19:00 07/14/24 21:34 D5.45ns W/20 Meq Kcl IV 100 mls/hr .Q10H TARYN Administration Ciprofloxacin 400 mg in 200 mls @ 200 mls/hr 07/15/24 07:00 07/15/24 07:26 Cipro 400 Mg/200 Ml IV Infused Q12H TARYN Infusion Metronidazole 500 mg in 100 mls @ 100 mls/hr 07/15/24 02:00 07/15/24 03:15 Flagyl 500 Mg/100 Ml IV Infused Q8H TARYN Infusion Ondansetron HCl 4 mg 11/20/24 18:19 Ondansetron Odt 4 Mg Tablet TL Q6HR PRN Nausea / Vomiting Ondansetron HCl 4 mg 07/14/24 18:19 07/15/24 04:16 Ondansetron 4 Mg/2 Ml Vial IVP 4 mg Q6HR PRN Administration Nausea / Vomiting Oxycodone HCl 5 mg 07/14/24 18:19 07/15/24 04:16 Oxycodone 5 Mg Tablet PO 5 mg Q4HR PRN Administration Pain 5 to 7 Pantoprazole Sodium 40 mg 07/15/24 07:00 07/15/24 06:24 Pantoprazole 40 Mg Tablet PO 40 mg QDAC TARYN Administration Polyethylene Glycol 17 gm 07/15/24 09:00 07/15/24 08:48 Polyethylene Glycol 3350 17 Gm Packet PO 17 gm DAILY TARYN Administration Sodium Chloride 10 ml 07/14/24 18:19 07/15/24 02:40 Sodium Chloride Flush 0.9% 10 Ml Syringe IVP 10 ml PRN PRN Administration NEEDED PER PROVIDER ORDERS Sodium Chloride 10 ml 07/15/24 01:00 07/15/24 08:49 Sodium Chloride Flush 0.9% 10 Ml Syringe IVP Not Given 0100,0900,1700 TARYN Trazodone HCl 50 mg 07/14/24 19:00 Trazodone 50 Mg Tablet PO NIGHTLY TARYN Objective Vital Signs/Intake & Output Vital Signs: Vital Signs x48h Temp Pulse Resp BP Pulse Ox O2 Flow Rate 07/15/24 08:34 37.2 C 89 18 115/69 92 0 07/15/24 03:57 37.6 C 93 H 18 131/80 H 93 07/15/24 01:46 36.8 C Intake & Output: Intake & Output 07/13/24 07/14/24 07/15/24 07/16/24 05:59 05:59 05:59 05:59 Intake Total 400 / 400 200 / 200 Balance 400 / 400 200 / 200 Weight (kg) 120 kg Objective General Appearance: positive No acute distress and Alert Eyes Bilateral: positive PERRL and EOMI Neck: positive Trachea midline Respiratory: positive No respiratory distress Abdomen: positive No distention and Other (mild tenderness rlq) Lab Results 07/14/24 12:54 07/14/24 12:54 Other Labs: Lab Results x24hrs 07/14/24 07/14/24 Range/Units 14:40 12:54 WBC 16.1 H (4.8-10.8) x10^3/uL RBC 4.69 (4.20-5.40) 10^6/uL Hgb 13.3 (12.0-16.0) g/dL Hct 41.6 (37.0-47.0) % MCV 88.7 (81.0-99.0) fL MCH 28.4 (27.0-31.0) pg MCHC 32.0 (32.0-36.0) g/dL RDW 13.2 (12.0-15.0) % Plt Count 374 (130-450) 10^3/uL MPV 8.4 (7.9-10.8) fL Neut # (Auto) 12.9 H (1.5-6.6) 10^3/uL Lymph # (Auto) 1.8 (1.5-3.5) 10^3/uL [place] # (Auto) 1.1 H (0.0-1.0) 10^3/uL Eos # (Auto) 0.1 (0.0-0.7) 10^3/uL Baso # (Auto) 0.1 (0.0-0.1) 10^3/uL Absolute Nucleated RBC 0.00 x10^3/uL Nucleated RBC % 0.0 /100WBC Sodium 138 (135-145) mmol/L Potassium 3.9 (3.5-4.5) mmol/L Chloride 105 (101-111) mmol/L Carbon Dioxide 25 (21-32) mmol/L Anion Gap 8.0 (6-13) BUN 10 (6-20) mg/dL Creatinine 0.8 (0.6-1.3) mg/dL Estimated GFR (MDRD) 73 L (>89) Glucose 112 H (74-104) mg/dL Calcium 9.5 (8.5-10.3) mg/dL Total Bilirubin 0.5 (0.2-1.0) mg/dL AST 12 (10-42) IU/L ALT 11 (10-60) IU/L Alkaline Phosphatase 62 (42-121) IU/L Total Protein 7.0 (6.4-8.9) g/dL Albumin 4.2 (3.2-5.5) g/dL Globulin 2.8 (2.1-4.2) g/dL Albumin/Globulin Ratio 1.5 (1.0-2.2) Lipase < 10 L (11-82) U/L Urine Color YELLOW Urine Clarity CLOUDY (CLEAR) Urine pH 6.0 (5.0-7.5) PH Ur Specific [place] >=1.030 H (1.002-1.030) Urine Protein NEGATIVE (NEGATIVE) mg/dL Urine Glucose (UA) NEGATIVE (NEGATIVE) mg/dL Urine Ketones TRACE (NEGATIVE) mg/dL Urine Occult Blood NEGATIVE (NEGATIVE) Urine Nitrite NEGATIVE (NEGATIVE) Urine Bilirubin NEGATIVE (NEGATIVE) Urine Urobilinogen 0.2 (NORMAL) (NORMAL) E.U./dL Ur Leukocyte Esterase TRACE H (NEGATIVE) Urine RBC None Seen (0-5) /HPF Urine WBC 0-3 (0-5) /HPF Ur Squamous Epith Cells RARE Squamous (<= Few) Amorphous Sediment Marked /LPF Urine Bacteria None Seen (None Seen) /HPF Ur Microscopic Review INDICATED Urine Culture Comments INDICATED Assessment/Plan Problem List (1) Appendicitis: Impression: appendicitis with significant surrounding inflammation. symptoms on and off for 2 weeks. was on anticoagulation, xarelto. plan hold xarelto, observation, iv abx. if improving plan interval appendectomy. if not improving plan ct scan to rule out developing abscess. if not improving and no abscess plan surgery this hospitalization. Qualifiers: Acute appendicitis type: unspecified acute appendicitis type A ppendicitis type: acute appendicitis Qualified Code(s): K35.80 - Unspecified acute appendicitis
--- NOTE | 2024-07-15 13:23 | PHARMACY PROGRESS NOTE ---
Best Possible Medication History Admit Date and Time: 07/14/24 [id number] Home Medications Medication Instructions Recorded Confirmed Type duloxetine 60 mg capsule,delayed 60 mg PO DAILY 02/01/15 07/15/24 History release metformin 850 mg tablet 850 mg PO BID 02/01/15 07/15/24 History (Glucophage) diltiazem HCl 120 mg 120 mg PO DAILY #30 caps 05/23/17 07/15/24 Rx capsule,extended release 24 hr bupropion HCl 300 mg 24 hr tablet, 300 mg PO DAILY 06/05/22 07/15/24 History extended release (Wellbutrin XL) lansoprazole 15 mg capsule,delayed 30 mg PO BIDAC 03/25/24 07/15/24 History release famotidine 20 mg tablet 20 mg .Route BID 06/28/24 07/15/24 History gabapentin 300 mg capsule 300 mg PO QPM 06/28/24 07/15/24 History rivaroxaban 20 mg tablet (Xarelto) 20 mg PO DAILY 06/28/24 07/15/24 History trazodone 100 mg tablet 200 mg PO QPM 06/28/24 07/15/24 History celecoxib 100 mg capsule 100 mg PO BID #60 caps 06/30/24 07/15/24 Rx hydroxyzine HCl 50 mg tablet 50 mg PO .qhs PRN itching 06/30/24 07/15/24 History pravastatin 20 mg tablet 20 mg PO QPM 07/15/24 07/15/24 History Processed by: Pharmacy Medications reviewed in ED?: No Medication History completed: Yes Patient Interview: Completed Secondary Source(s): Spouse/Significant other, Pharmacy records and Insurance records [facility] Statement: As the person ultimately responsible for medication therapy, providers are able to order a medication from an existing home medication list in [facility] via the "Reconcile Routine" prior to Confirmation of that medication by it support specialist. Such practice is discouraged except when the physician, in their clinical judgment, deems that a medical need exists for a medication without regard to previous use.
[2024-07-16 05:46] LABS: HGB - HEMOGLOBIN 11.7 g/dL (12.0-16.0); MEAN CORPUSCULAR HGB CONC 32.5 g/dL (32.0-36.0); MEAN CORPUSCULAR VOLUME 89.1 fL (81.0-99.0); MEAN PLATELET VOLUME 8.6 fL (7.9-10.8); RED BLOOD COUNT 4.04 10^6/uL (4.20-5.40); RED CELL DISTRIBUTION WIDTH 13.1 % (12.0-15.0); WHITE BLOOD COUNT 16.3 x10^3/uL (4.8-10.8)
[2024-07-16 06:05] LABS: CALCIUM 8.7 mg/dL (8.5-10.3); CREATININE 0.7 mg/dL (0.6-1.3); POTASSIUM 3.7 mmol/L (3.5-4.5)
[2024-07-16] MEDS ORDERED: METOCLOPRAMIDE 10 MG/2 ML VIAL IVP PRN (08:48)
[2024-07-16] MEDS ORDERED: fentaNYL 100 MCG/2 ML VIAL IVP PRN (08:48)
[2024-07-16] MEDS ORDERED: ONDANSETRON 4 MG/2 ML VIAL IVP PRN ×2 (08:48→19:13)
[2024-07-16] MEDS ORDERED: ePHEDrine 50 MG/ML VIAL IVP PRN (08:48)
[2024-07-16] MEDS ORDERED: ATROPINE ABBOJECT 1 MG/10 ML SYRINGE IVP PRN (08:48)
[2024-07-16] MEDS ORDERED: NALOXONE 0.4 MG/ML VIAL IVP PRN (08:48)
[2024-07-16] MEDS ORDERED: MORPHINE 2 MG/ML CARPUJECT IVP PRN (08:48)
--- NOTE | 2024-07-16 08:48 | ANESTHESIA PROCEDURE NOTE ---
Pre-Anesthesia VS, & Labs Diagnosis Surgical Diagnosis:: appendicitis Procedure Procedure: laparascopic appendectomy Vitals Vital Signs: Temp Pulse Resp BP Pulse Ox O2 Flow Rate 37.1 C 83 16 104/58 L 93 0 07/16/24 04:21 07/16/24 04:21 07/16/24 04:21 07/16/24 04:21 07/16/24 04:07/15/24 13:39 Height (in): 5 ft 9 in Weight (kg): 120 kg Body Mass Index: 39.0 BMI Classification: Obese NPO NPO: >8 hours Is Patient ?: No Lab Results Current Lab Results: Laboratory Tests 07/16/24 05:07: WBC 16.3 H, RBC 4.04 L, Hgb 11.7 L, Hct 36.0 L, MCV 89.1, MCH 29.0, MCHC 32.5, RDW 13.1, Plt Count 259, MPV 8.6, Sodium 135, Potassium 3.7, Chloride 104, Carbon Dioxide 25, Anion Gap 6.0, BUN 8, Creatinine 0.7, Estimated GFR (MDRD) 85 L, Glucose 128 H, Calcium 8.7 07/14/24 12:54: WBC 16.1 H, RBC 4.69, Hgb 13.3, Hct 41.6, MCV 88.7, MCH 28.4, MCHC 32.0, RDW 13.2, Plt Count 374, MPV 8.4, Neut # (Auto) 12.9 H, Lymph # (Auto) 1.8, Mayes # (Auto) 1.1 H, Eos # (Auto) 0.1, Baso # (Auto) 0.1, Absolute Nucleated RBC 0.00, Nucleated RBC % 0.0, Sodium 138, Potassium 3.9, Chloride 105, Carbon Dioxide 25, Anion Gap 8.0, BUN 10, Creatinine 0.8, Estimated GFR (MDRD) 73 L, Glucose 112 H, Calcium 9.5, Total Bilirubin 0.5, AST 12, ALT 11, Alkaline Phosphatase 62, Total Protein 7.0, Albumin 4.2, Globulin 2.8, Albumin/Globulin Ratio 1.5, Lipase < 10 L Lab results reviewed: Yes 07/16/24 05:07 07/16/24 05:07 Meds/Allgy Home Medications Ambulatory Orders Medication Instructions Recorded Confirmed duloxetine 60 mg capsule,delayed 60 mg PO DAILY 02/01/15 07/15/24 release metformin 850 mg tablet 850 mg PO BID 02/01/15 07/15/24 (Glucophage) diltiazem HCl 120 mg 120 mg PO DAILY #30 caps 05/23/17 07/15/24 capsule,extended release 24 hr bupropion HCl 300 mg 24 hr tablet, 300 mg PO DAILY 06/05/22 07/15/24 extended release (Wellbutrin XL) lansoprazole 15 mg capsule,delayed 30 mg PO BIDAC 03/25/24 07/15/24 release famotidine 20 mg tablet 20 mg .Route BID 06/28/24 07/15/24 gabapentin 300 mg capsule 300 mg PO QPM 06/28/24 07/15/24 rivaroxaban 20 mg tablet (Xarelto) 20 mg PO DAILY 06/28/24 07/15/24 trazodone 100 mg tablet 200 mg PO QPM 06/28/24 07/15/24 celecoxib 100 mg capsule 100 mg PO BID #60 caps 06/30/24 07/15/24 hydroxyzine HCl 50 mg tablet 50 mg PO .qhs PRN itching 06/30/24 07/15/24 pravastatin 20 mg tablet 20 mg PO QPM 07/15/24 07/15/24 Allergies Allergies Allergy/AdvReac Type Severity Reaction Status Date / Time amoxicillin trihydrate * Allergy Rash Verified 07/14/24 12:22 (From Augmentin) potassium clavulanate * Allergy Unknown Verified 07/14/24 12:22 (From Augmentin) sulfamethoxazole (From Allergy Rash Verified 07/14/24 12:22 Septra) trimethoprim (From Septra) Allergy Rash Verified 07/14/24 12:22 [facility] Medical History Medical History Atrial fibrillation (04/14/18) Paroxysmal atrial fibrillation (05/24/17) Combined hyperlipidemia associated with type 2 diabetes mellitus (11/18/17) Depression with anxiety (05/24/17) Scoliosis (05/24/17) Obesity (05/24/17) Insomnia (05/24/17) Diabetes mellitus type 2, controlled (05/24/17) Anemia (11/18/17) Borderline hyperlipidemia IBS (irritable bowel syndrome) Family History Family History (Updated 06/28/24 @ 15:52 by Krupa Amanda MA) Maternal grandmother Breast cancer Mother High blood pressure Depressed Father Depressed Daughter No problems noted. Other Sciatica Social History Social History Smoking Status: Never smoker Do you dip or chew tobacco?: No Do you vape?: No Patient requests smoking cessation consult: No Initiate information on smoking cessation: No Living arrangement: At home Living Condition: With spouse/s.o. Relationship: Level: Independent Do you feel safe in your home environment?: Yes Suffered physical, verbal, emotional, or financial abuse?: No History of Abuse: No Frequency: Occasional POLST Patient has POLST: No POLST Status: Full Code Results Echo Results Echo Results: Report reviewed Anesthesia Exam (Expanded) Exam General: Mild distress Dental: WNL Mouth Openin Fingerbreadth Neck Mobility: Normal Mallampati classification: II Thyromental Distance: 4-6 cm Respiratory: Lungs clear (uses cpap) Cardiovascular: Other (denies cp/sob, reports she had a cardiac ablation for afib, says it was successful, no recent ekg; will order; reports last dose of xarelto friday 07/13) Plan Problem List (1) Appendicitis: Plan: significant appendicitis with surrounding fluid and large area surrounding inflammation. agree with ED MD likely appendicitis x 2 weeks. she is currently anticoagulated Qualifiers: Acute appendicitis type: unspecified acute appendicitis type A ppendicitis type: acute appendicitis Qualified Code(s): K35.80 - Unspecified acute appendicitis (2) Hyperlipidemia: (3) Hypertension: Qualifiers: Hypertension type: essential hypertension Qualified Code(s): I10 - Essential (primary) hypertension (4) Combined hyperlipidemia associated with type 2 diabetes mellitus: (5) ROSA on CPAP: Plan observation, hold xarelto, iv abxs. hopefully she will improve and plan interval appendectomy once the the significant inflammation has resolved. risk needing urgent surgery and developing an abscess also discussed Plan Anesthesia Type: General Consent for Procedure(s) Verified and Reviewed: Yes Code Status: Attempt Resuscitation ASA Classification ASA classification: 3-Severe systemic disease Is this case an emergency?: No
[2024-07-16] MEDS ORDERED: LIDOCAINE-PF 2% 10 ML AMP SUBQ ONE (13:34)
[2024-07-16] MEDS ORDERED: ROCURONIUM 50 MG/5 ML VIAL ONE ×3 (13:35→17:52)
[2024-07-16] MEDS ORDERED: MIDAZOLAM 2 MG/2 ML VIAL ONE (13:35)
[2024-07-16] MEDS ORDERED: fentaNYL 100 MCG/2 ML VIAL ONE ×3 (13:35→17:33)
[2024-07-16] MEDS ORDERED: PROPOFOL 200 MG/20 ML VIAL IVP ONE ×2 (13:35→18:33)
[2024-07-16] MEDS ORDERED: LIDOCAINE 1%-EPI 1:100000 20 ML MDV ONE (14:01)
[2024-07-16] MEDS ORDERED: BUPIVACAINE 0.5% PF 10 ML VIAL ONE (14:01)
[2024-07-16] MEDS ORDERED: BUPIVACAINE 0.25% PF 10 ML VIAL ONE (14:15)
--- NOTE | 2024-07-16 14:58 | PROVIDER PROGRESS NOTE ---
Subjective General Admit Date: 07/14/24 Other Other Information/Narrative: Admitted [address] Rausch for acute appendicitis with significant surrounding inflammation. She was placed on abx and monitored, as she was on Xarelto at admission. After 48 hours of antibiotics, her pain has not improved and her WBC remains 16. Her care was signed over to me from Dr. Rausch this AM, and we both agreed that proceeding with appendectomy was reasonable at this poi nt. Review of Systems Status of ROS: 10 or more systems reviewed and unremarkable except as noted in history and below Exam Constitutional distress noted mild distress 2/2 abdominal pain HENMT normocephalic Eyes EOMs intact bilaterally and conjunctivae normal Neck/C-Spine visual inspection normal Respiratory breath sounds equal bilaterally and normal respiratory effort Cardiovascular normal heart rate noted Gastrointestinal abdomen soft to palpation significant RLQ ttp, negative peritonitis/negative rosvings Extremities normal to inspection Psychiatry mental status grossly normal and oriented x3 Skin skin color normal ABX Reporting Has patient been on IV antibiotics over the past 48 hours?: Yes Impression/Plan Problem List (1) Appendicitis: Plan: 63yoF with acute appendicitis with significant surrounding inflammation, though no clear evidence of perforation on admission CT scan 2 days ago. Though she has remained HD normal and afebrile, her leukocytosis and abdominal pain have not resolved on Cipro/Flagyl. Has been off of Xarelto 2 days now. Discussed indications for appendectomy, along with risks of pain, bleeding, infection/postoperative abscess, conversion to open or bowel resection, and need for further procedures with her and her partner. All questions were answered. Proceed to OR for laparoscopic appendectomy. Lila Arboleda DO, FACS General Surgeon, [facility] Qualifiers: Acute appendicitis type: unspecified acute appendicitis type Appendicitis type: acute appendicitis Qualified Code(s): K35.80 - Unspecified acute appendicitis (2) Hyperlipidemia: (3) Hypertension: Qualifiers: Hypertension type: essential hypertension Qualified Code(s): I10 - Essential (primary) hypertension (4) ROSA on CPAP:
[2024-07-16] MEDS ORDERED: ONDANSETRON 4 MG/2 ML VIAL ONE (16:22)
[2024-07-16] MEDS ORDERED: SUGAMMADEX 200 MG/2 ML VIAL IVP ONE (16:22)
[2024-07-16] MEDS ORDERED: HYDROmorphone 1 MG/ML CARPUJECT ONE (18:15)
--- NOTE | 2024-07-16 19:12 | OPERATIVE REPORT ---
Operative Report General Admit Date: 07/14/24 Procedure Data: Operation Date: 07/16/24 14:00 Proposed Procedures p Laparoscopic Appendectomy, POSSIBLY OPEN(Not Applicable) - Lila Arboleda DO Actual Procedures p Laparoscopic Appendectomy WITH DRAIN PLACEMENT(Not Applicable) - Lila Arboleda DO Pre-Op Diagnosis: APPENDICITIS Pre-Op Diagnosis: APPENDICITIS Anesthesia Type General Case Staff Anesthesia Provider: Maksim Clemons Case Times Procedure Start: 07/16/24 15:46 Procedure End: 07/16/24 18:30 Time out: 07/16/24 15:40 Pre-Op Diagnosis: acute appendicitis Post Op Diagnosis: acute perforated appendicitis Procedure Note Intake, IV Amount (ml): 1,500 Estimated Blood Loss (ml): 50 Output, Urine Amount (ml): 250 Drain/Tube Type: Nitin Tran round drain Pathology: 1) Appendix 2) Periappendiceal fat Indications: 63F Admitted with acute appendicitis while on Xarelto. Monitored for 48 hours on cipro/flagyl while holding DOAC, but pain and WBC did not improve. Thus taken to OR for appendectomy. Findings: Dense ball of adhesed loops of small bowel walling off a severely inflamed and perforated appendix in the RLQ. Initial structure dissected free and felt to be appendix turned out to be a tensely inflamed periappendiceal fat pad. True appendix then identified and removed - stapled base with 45mm blue load x2, mesoappendix taken with ligasure. RLQ and pelvis irrigated, drain placed. Complications: none Other Other Information/Narrative: The patient was brought to the operating room with universal protocol observed throughout. They were placed supine on the operating room table with the left arm tucked. A Yuen was placed. General anesthesia with endotracheal tube was induced by the anesthesia service. The abdomen was prepped and draped in standard sterile fasion. A timeout was performed with all members of the team being in agreement. Local anesthetic of 1% lidocaine with epinephrine mixed with Marcaine plain was injected into the periumbilical skin, and the skin was incised sharply. Blunt dissection down to the level of the fascia was performed. The umbilical stalk was elevated and the fascia was incised sharply in a vertical orientation and the peritoneal cavity was entered bluntly with a Milka clamp. A 12 mm balloon trocar was placed. The abdomen was insufflated with CO2 gas to a pressure of 15 mmHg which the patient tolerated well. The laparoscope was inserted and visual inspection revealed no evidence of injury upon entry. Two additional 5mm trocars were placed under direct visualization: one in the left lower quadrant, one in the suprapubic position. Graspers were introduced into the abdomen. In the right lower quadrant, several loops of small bowel were adhesed in a nest against the abdominal wall, presumably walling off the appendix. They were slowly teased apart with blunt dissection, revealing a terribly large and inflamed appendix, clearly perforated by evidence of the green purulent fluid pouring out of it and the green fibrinous exudate coating the appendix and the cecum. Several free floating fecaliths were seen within the nest of small bowel. Using the suction sales marketing coordinator, the ligasure, and careful dissection, the appendix freed down to the base (using ligasure on the mesoappendix), which was stapled with 45mm blue load x2. It was placed into an endocatch, brought out through the umbilical incision, and opened on the back table. On the back table, it was seen that this longitudinal tubular inflamed structure was infact a periappendiceal fat pad, and not the appendix. Attention was redirected to the right lower quadrant, where a second appendiceal candidate was dissected free using the ligasure, and again stapled at the base with two 45mm blue loads, placed into an endocatch bag, removed through the umbilical incision, and opened on the back table. The second specimen was infact the appendix, with a perforation [address] base. The staple lines were inspected and noted to be intact and hemostatic. Serosanguinous fluid was suctioned from the right lower quadrant and the pelvis. Both the right lower quadrant and pelvis were further irrigated and suctioned dry. A round JOAQUIN was placed along the right gutter and in the pelvis, and brought out through the left lower quadrant trocar incision, secured to the skin with 2- 0 nylon suture. The suprapubic trocar was removed under direct visualization. The umbilical fascia was closed with two 0 Vicryl [id number] sutures. The umbilical wound was irrigated with clean irrigant. Hemostasis in the wound was achieved with Bovie electrocautery and all skin incisions were closed with subcuticular 4-0 Monocryl suture. Dressings of Steri-Strips, gauze, and Tegaderm were applied. The patient was extubated and awoken from general anesthesia. The yuen was left in place. There were no complications. All sponge needle counts were correct. The patient was transferred to the PACU in good condition. Lila Arboleda DO, FACS General Surgeon, [facility]
[2024-07-16] MEDS ORDERED: oxyCODONE 5 MG TABLET PO PRN (19:13)
[2024-07-16] MEDS ORDERED: HYDROmorphone 0.5 MG/0.5 ML SYRINGE ONE (19:18)
[2024-07-16] MEDS ORDERED: KETOROLAC 15 MG/ML VIAL ONE (19:19)
[2024-07-16] MEDS: KETOROLAC 30 MG/ML VIAL IVP STA (19:20)
[2024-07-16] MEDS: HYDROmorphone 0.5 MG/0.5 ML SYRINGE IVP PRN (19:20)
--- NOTE | 2024-07-16 19:41 | ANESTHESIA POST OP EVALUATION ---
Anesthesia Post Eval Post Anesthesia Eval Vitals: Last Vital Signs Temp 36.4 C L 07/16/24 19:25 Pulse 92 H 07/16/24 19:25 Resp 16 07/16/24 19:25 BP 125/67 07/16/24 19:25 Pulse Ox 94 07/16/24 19:25 O2 Flow Rate 0 07/15/24 13:39 CV Function Including HR & BP: Stable Pain Control: Satisfactory Nausea & Vomiting: Negative Mental Status: Baseline Respiratory Status: Airway Patent Hydration Status: Satisfactory Anesthesia Complications: None
[2024-07-16] MEDS ORDERED: SODIUM CHLORIDE FLUSH 0.9% 10 ML SYRINGE IVP PRN (20:33)
[2024-07-16] MEDS ORDERED: GABAPENTIN 300 MG CAPSULE PO SCH (21:00)
[2024-07-16] MEDS: LACTATED RINGERS 1,000 ML IV SCH (21:01)
[2024-07-16] MEDS: PRAVASTATIN 10 MG TABLET PO SCH (21:08)
[2024-07-16] MEDS: metroNIDAZOLE 500 MG/100 ML 500 MG/100 ML BAG IV SCH (21:08)
[2024-07-16] MEDS: CIPROFLOXACIN 400 MG/200 ML 400 MG/200 ML BAG IV SCH (22:23)
[2024-07-17] MEDS: ACETAMINOPHEN 1,000 MG/100 ML 1,000 MG/100 ML BAG IV SCH (00:23)
[2024-07-17] MEDS: SODIUM CHLORIDE FLUSH 0.9% 10 ML SYRINGE IVP SCH (00:26)
[2024-07-17] MEDS: KETOROLAC 15 MG/ML VIAL IVP SCH (00:26)
[2024-07-17 05:26] LABS: HGB - HEMOGLOBIN 11.9 g/dL (12.0-16.0); MEAN CORPUSCULAR HEMOGLOBIN 27.8 pg (27.0-31.0); MEAN CORPUSCULAR HGB CONC 31.3 g/dL (32.0-36.0); MEAN CORPUSCULAR VOLUME 88.8 fL (81.0-99.0); MEAN PLATELET VOLUME 8.7 fL (7.9-10.8); RED BLOOD COUNT 4.28 10^6/uL (4.20-5.40); RED CELL DISTRIBUTION WIDTH 12.9 % (12.0-15.0); WHITE BLOOD COUNT 13.6 x10^3/uL (4.8-10.8)
[2024-07-17 05:40] LABS: CALCIUM 8.4 mg/dL (8.5-10.3); CREATININE 0.6 mg/dL (0.6-1.3); MAGNESIUM 1.5 mg/dL (1.7-2.3); PHOSPHORUS 3.2 mg/dL (2.5-5.0); POTASSIUM 3.7 mmol/L (3.5-4.5)
[2024-07-17] MEDS ORDERED: POTASSIUM CHLORIDE INJ 40 MEQ in SODIUM CHLORIDE 0.9% 500 ML IV ONE (09:52)
[2024-07-17] MEDS: MAGNESIUM SULFATE 2 GRAM 2 GM/50 ML BAG IV ONE (10:22)
[2024-07-17] MEDS: POTASSIUM CHLOR 10 MEQ/100 ML 10 MEQ/100 ML BAG IV SCH (11:00)
[2024-07-17] MEDS: ENOXAPARIN 40 MG/0.4 ML SYRINGE SUBQ SCH (13:22)
--- NOTE | 2024-07-17 17:19 | PROVIDER PROGRESS NOTE ---
Subjective General Admit Date: 07/17/24 Procedure Date: 07/16/24 Post Op Days: 1 Procedure Performed: laparoscopic appendectomy Other Other Information/Narrative: To OR yesterday for lap appy - perforated appendicitis with purlent fluid, fibrinous debris, and free floating fecaliths; terrible inflammatory reaction. Successfully completed appendectomy without opening or requiring ileocecectomy, drain left in RLQ/pelvis. Overall still having abdominal pain, but it is slightly less than preop and also well controlled on multimodal pain regimen, mostly bothersome when changing positions. She is HDN and AF since surgery, denies nausea, tolerated some sips of water with slight flatus, but no appetite really yet. Wound Assessment Wound/Incisions: positive Dressing dry and intact Drain Type: JOAQUIN Drain Output Description: serosanguinous Approximate mls Output: 185 Review of Systems Status of ROS: 10 or more systems reviewed and unremarkable except as noted in history and below Exam Constitutional normal general appearance and no apparent distress much more comfortable than preop yesterday HENMT normocephalic Respiratory normal respiratory effort Cardiovascular normal heart rate noted Gastrointestinal abdomen soft to palpation and nondistended much improved RLQ ttp, incisions CDI, JOAQUIN drain ssf with scant strikethrough on drain sponge Genitourinary yuen in place. urine clear yellow Extremities normal to inspection Psychiatry mental status grossly normal and oriented x3 Skin skin color normal ABX Reporting Has patient been on IV antibiotics over the past 48 hours?: Yes Impression/Plan Problem List (1) Appendicitis: Plan: 63yoF with acute appendicitis admitted to observation on 07/14, observed on IV cipro/flagyl while holding Xarelto for 48hours but no improvement, thus taken to OR on 07/16 for laparoscopic appendectomy where she was found to have perforated appendicitis with severe intraabdominal inflammation. JOAQUIN drain left in place. Today POD1 she is clinically stable with slightly improving pain, downtrending WBC (16->13), but no appetite yet. - multimodal pain control - home CPAP/meds - Incentive spirometer, out to bed to chair and ambulate - clear liquids, IVF until PO intake adequate - DC yuen today - daily labs - continue IV cipro/flagyl for intraabdominal infection - start ppx lovenox today, plan to resume home xarelto tomorrow as long as hgb stable Dispo: Transferred to inpatient care today Lila Tulk, DO, TAYLOR General Surgeon, [facility] Qualifiers: Acute appendicitis type: unspecified acute appendicitis type Appendicitis type: acute appendicitis Qualified Code(s): K35.80 - Unspecified acute appendicitis (2) ROSA on CPAP: Plan: home cpap
[2024-07-17] MEDS: GABAPENTIN 300 MG CAPSULE PO SCH (20:45)
[2024-07-17] MEDS: traZODone 50 MG TABLET PO SCH (20:45)
[2024-07-18 05:39] LABS: HCT - HEMATOCRIT 34.7 % (37.0-47.0); MEAN CORPUSCULAR HEMOGLOBIN 28.4 pg (27.0-31.0); MEAN CORPUSCULAR HGB CONC 31.7 g/dL (32.0-36.0); MEAN CORPUSCULAR VOLUME 89.7 fL (81.0-99.0); MEAN PLATELET VOLUME 8.7 fL (7.9-10.8); RED BLOOD COUNT 3.87 10^6/uL (4.20-5.40); WHITE BLOOD COUNT 11.1 x10^3/uL (4.8-10.8)
[2024-07-18 05:54] LABS: CALCIUM 8.2 mg/dL (8.5-10.3); CREATININE 0.6 mg/dL (0.6-1.3); MAGNESIUM 1.8 mg/dL (1.7-2.3); PHOSPHORUS 2.5 mg/dL (2.5-5.0); POTASSIUM 3.9 mmol/L (3.5-4.5)
[2024-07-18] MEDS: APIXABAN 5 MG TABLET PO SCH (10:56)
[2024-07-18] MEDS: MAGNESIUM SULFATE 2 GRAM 2 GM/50 ML BAG IV ONE (11:19)
--- NOTE | 2024-07-18 11:22 | PROVIDER PROGRESS NOTE ---
Subjective General Admit Date: 07/17/24 Procedure Date: 07/16/24 Post Op Days: 2 Procedure Performed: laparoscopic appendectomy Other Other Information/Narrative: HDN, AF. Pain improved from yesterday, used no dilaudid and oxy x2 yesterday. Tolerated 800cc clears, no nausea, appetitie is returning. Dempsey removed, voiding well (UOP 1250). Has ambulated only to bathroom. Is weary of being in the hospital/sleeping poorly. JOAQUIN drain has 230 cc last 24hrs - fluid now serous in bulb. Wound Assessment Wound/Incisions: positive Dressing dry and intact Drain Type: JOAQUIN Drain Output Description: serous Approximate mls Output: 230 Review of Systems Status of ROS: 10 or more systems reviewed and unremarkable except as noted in history and below Exam Constitutional normal general appearance and no apparent distress HENMT normocephalic Eyes EOMs intact bilaterally and conjunctivae normal Neck/C-Spine visual inspection normal Respiratory breath sounds equal bilaterally and normal respiratory effort Cardiovascular normal heart rate noted Gastrointestinal abdomen soft to palpation and nondistended improved RLQ ttp, incisions CDI, JOAQUIN drain serous Extremities normal to inspection Psychiatry mental status grossly normal and oriented x3 Skin skin color normal ABX Reporting Has patient been on IV antibiotics over the past 48 hours?: Yes Impression/Plan Problem List (1) Appendicitis: Plan: 63yoF with acute appendicitis admitted to observation on 07/14, observed on IV cipro/flagyl while holding Xarelto for 48hours but no improvement, thus taken to OR on 07/16 for laparoscopic appendectomy where she was found to have perforated appendicitis with severe intraabdominal inflammation. JOAQUIN drain left in place. Transferred to inpatient for continued postop care. Today POD2 she is steading improving, clinically stable, downtrending WBC (16- >13 -> 11), appetite returning. Hgb stable with ppx lovenox and toradol. - multimodal pain control - will transition to PO regimen this afternoon if tolerates regular diet - home CPAP/meds - Incentive spirometer, - needs to ambulate in halls today - advance to regular diet, dc IVF - daily labs - continue IV cipro/flagyl for intraabdominal infection - transition from ppx lovenox to home xarelto today Dispo: continue inpatient care today, anticipate home in 24-48hours Lila Arboleda DO, TAYLOR General Surgeon, [facility] Qualifiers: Acute appendicitis type: unspecified acute appendicitis type Appendicitis type: acute appendicitis Qualified Code(s): K35.80 - Unspecified acute appendicitis (2) ROSA on CPAP: Plan: home cpap
[2024-07-18] MEDS: IBUPROFEN 800 MG TABLET PO SCH (22:14)
[2024-07-19] MEDS: ACETAMINOPHEN 500 MG TABLET PO SCH (00:25)
[2024-07-19 05:32] LABS: HGB - HEMOGLOBIN 11.4 g/dL (12.0-16.0); MEAN CORPUSCULAR HEMOGLOBIN 28.6 pg (27.0-31.0); MEAN CORPUSCULAR HGB CONC 32.6 g/dL (32.0-36.0); MEAN CORPUSCULAR VOLUME 87.9 fL (81.0-99.0); MEAN PLATELET VOLUME 8.5 fL (7.9-10.8); RED BLOOD COUNT 3.98 10^6/uL (4.20-5.40); RED CELL DISTRIBUTION WIDTH 13.1 % (12.0-15.0); WHITE BLOOD COUNT 9.1 x10^3/uL (4.8-10.8)
[2024-07-19 05:50] LABS: CALCIUM 8.2 mg/dL (8.5-10.3); CREATININE 0.6 mg/dL (0.6-1.3); MAGNESIUM 1.8 mg/dL (1.7-2.3); PHOSPHORUS 3.2 mg/dL (2.5-5.0); POTASSIUM 3.3 mmol/L (3.5-4.5)
[2024-07-19] MEDS ORDERED: MAGNESIUM SULFATE 2 GRAM 2 GM/50 ML BAG IV ONE (08:00)
[2024-07-19] MEDS ORDERED: POTASSIUM CHLOR 10 MEQ/100 ML 10 MEQ/100 ML BAG IV SCH (08:00)
[2024-07-19] MEDS: POTASSIUM CHLORIDE 20 MEQ TABLET PO ONE (09:36)
[2024-07-19] MEDS: CIPROFLOXACIN 250 MG TABLET PO SCH (09:36)
[2024-07-19 09:41] VITALS: O2SAT 94
[2024-07-19] MEDS: MAGNESIUM OXIDE 400 MG TABLET PO ONE (11:58)
[2024-07-19] MEDS ORDERED: metroNIDAZOLE 250 MG TABLET PO SCH (13:00)
--- NOTE | 2024-07-19 14:48 | Discharge Summary ---
"Discharge Summary Admit Date: 07/14/24 Discharge Date: 07/19/24 Discharging Provider: Lila Arboleda DO Code Status: Attempt Resuscitation Discharge Facility Name: [facility] DIAGNOSES Admission Diagnoses: acute appendicitis Discharge Diagnoses with Status of Each Condition: Acute perforated appendicitis - resolved, s/p surgery HPI History of Present Illness: rlq abdominal pain 2 weeks ago for 2 days. improved until today when pain came back and is worse. no n/v. history a fib and takes xarelto. significant appendicitis with surrounding fluid and large area surrounding inflammation. agree with ED MD likely appendicitis x 2 weeks. she is currently anticoagulated observation, hold xarelto, iv abxs. hopefully she will improve and plan interval appendectomy once the the significant inflammation has resolved. risk needing urgent surgery and developing an abscess also discussed CONSULTS | PROCEDURES Procedures: Laparoscopic appendectomy HOSPITAL COURSE Hospital Course: 63yoF with acute appendicitis admitted to observation on 07/14, observed on IV cipro/flagyl while holding Xarelto for 48hours but no improvement, thus taken to OR on 07/16 for laparoscopic appendectomy where she was found to have perforated appendicitis with severe intraabdominal inflammation. JOAQUIN drain left in place. Transferred to inpatient for continued postop care. Postoperatively she was kept on IV cipro/flagyl and her WBC downtrended (16->13 -> 11 -->9), she remained HDN and afebrile, she was slowly advanced back to a regular diet by POD2. A yuen was left in place the night of surgery and removed on POD1. Her hemoglobin stayed stable and her anticoagulation was resumed on POD2. Her pain was controlled on oral medication by POD2 and she was able to ambulate. Her JOAQUIN drain output downtrended in volume and cleared from ssf to clear serous fluid, it was removed on POD3. She was discharged to home on POD3 with home antibiotics to complete 5 days postoperative coverage. Lila Arboleda DO, [facility] General Surgeon, [facility] ALLERGIES Allergies Allergy/AdvReac Type Severity Reaction Status Date / Time amoxicillin trihydrate * Allergy Rash Verified 07/14/24 12:22 (From Augmentin) potassium clavulanate * Allergy Unknown Verified 07/14/24 12:22 (From Augmentin) sulfamethoxazole (From Allergy Rash Verified 07/14/24 12:22 Septra) trimethoprim (From Septra) Allergy Rash Verified 07/14/24 12:22 MEDICATIONS Ambulatory Orders Medication Instructions Recorded Confirmed duloxetine 60 mg capsule,delayed 60 mg PO DAILY 02/01/15 07/15/24 release metformin 850 mg tablet 850 mg PO BID 02/01/15 07/15/24 (Glucophage) diltiazem HCl 120 mg 120 mg PO DAILY #30 caps 05/23/17 07/15/24 capsule,extended release 24 hr bupropion HCl 300 mg 24 hr tablet, 300 mg PO DAILY 06/05/22 07/15/24 extended release (Wellbutrin XL) lansoprazole 15 mg capsule,delayed 30 mg PO BIDAC 03/25/24 07/15/24 release famotidine 20 mg tablet 20 mg .Route BID 06/28/24 07/15/24 gabapentin 300 mg capsule 300 mg PO QPM 06/28/24 07/15/24 rivaroxaban 20 mg tablet (Xarelto) 20 mg PO DAILY 06/28/24 07/15/24 trazodone 100 mg tablet 200 mg PO QPM 06/28/24 07/15/24 celecoxib 100 mg capsule 100 mg PO BID #60 caps 06/30/24 07/15/24 hydroxyzine HCl 50 mg tablet 50 mg PO .qhs PRN itching 06/30/24 07/15/24 pravastatin 20 mg tablet 20 mg PO QPM 07/15/24 07/15/24 acetaminophen 500 mg tablet 1,000 mg (2 x 500 mg) PO Q6HR #60 07/19/24 tabs ciprofloxacin HCl 250 mg tablet 500 mg (2 x 250 mg) PO BID 2 days 07/19/24 #8 tabs metronidazole 250 mg tablet 500 mg (2 x 250 mg) PO Q8H 2 days 07/19/24 #12 tabs oxycodone 5 mg tablet 5 mg PO Q4HR PRN Pain 5 to 7 #10 07/19/24 tabs PHYSICAL EXAM AT DISCHARGE General Appearance: positive No acute distress and Alert Eyes Bilateral: positive Normal inspection ENT: positive ENT inspection nml Neck: positive Nml inspection Respiratory: positive No respiratory distress Cardiovascular: positive Regular rate & rhythm Peripheral Pulses: positive 2+ Abdomen: positive No distention, Tenderness (mild at incisions) and Other (incisions CDI, drain removed and mepilex border placed) Skin: positive Color nml Extremities: positive Non-tender Neurologic/Psychiatric: positive Oriented x3 LABS 07/19/24 05:08 07/19/24 05:08 DIAGNOSTIC IMAGING Diagnostic Imaging Results Comments: admission CT abd/pel showing acute appendicitis SEPSIS Current Stage of Sepsis: Sepsis Possible source of Sepsis: GI tract/intra-abdominal FOLLOW UP Follow Up: Dr. Arboleda 07/03 @ 1030 TIME SPENT Time Spent in Discharge (Minutes): 30 Discharge Plan Discharge Patient Disposition: Home, Self Care Condition: Good Medically Cleared Date:: 07/19/24 Prescriptions: New acetaminophen 500 mg Tablet 1,000 mg PO Q6HR Qty: 60 0RF metronidazole 250 mg Tablet 500 mg PO Q8H 2 Days Qty: 12 0RF ciprofloxacin HCl 250 mg Tablet 500 mg PO BID 2 Days Qty: 8 0RF oxycodone 5 mg Tablet 5 mg PO Q4HR PRN (Reason: Pain 5 to 7) Qty: 10 0RF Continued metformin [Glucophage] 850 MG tablet 850 mg PO BID duloxetine 60 MG capsule,delayed release(DR/EC) 60 mg PO DAILY diltiazem HCl 120 MG capsule,extended release 24hr 120 mg PO DAILY Qty: 30 0RF bupropion HCl [Wellbutrin XL] 300 MG tablet extended release 24 hr 300 mg PO DAILY lansoprazole 15 MG capsule,delayed release(DR/EC) 30 mg PO BIDAC famotidine 20 mg tablet 20 mg .Route BID Rx Instructions: 20 mg twice a day; pravastatin 20 mg tablet 20 mg PO QPM Xarelto 20 mg tablet 20 mg PO DAILY trazodone 100 mg tablet 200 mg PO QPM gabapentin 300 mg capsule 300 mg PO QPM Rx Instructions: TAKE ONE (1) CAPSULE BY MOUTH ONCE NIGHTLY AT BEDTIME celecoxib 100 mg capsule 100 mg PO BID Qty: 60 0RF hydroxyzine HCl 50 mg tablet 50 mg PO .qhs PRN (Reason: itching) Rx Instructions: 1 tablet by mouth every night at bedtime as needed for itching Activity Restrictions: Activity as Tolerated Activity Restrictions/Additional Instructions: DIET - You may resume your normal diet if there is no nausea or vomiting. You may want to avoid spicy, greasy, or heavy foods today to minimize gas. - If nausea or vomiting occurs, don't eat or drink anything for one hour. Then start drinking small amounts of clear liquids. Later, add crackers, gradually building up to your usual diet. ACTIVITY INSTRUCTIONS * No lifting more than 20 pounds for 4 weeks * May shower normally DRESSING CARE * Leave the Steristrips (white tape) in place - they will fall off on their own in 1-2 weeks * The bandage on the drain site can come off after 48 hours. Cover as needed thereafter. CARE INSTRUCTIONS * Ice to wound for 15min three times per day. * Using supportive garments to reduce surgical site motion will reduce pain DISCHARGE INSTRUCTIONS * Please call the General Surgery Clinic ([phone]) for any questions, redness or drainage at incision, worsening pain/nausea/vomiting/fever. * Go to the Emergency Room after hours for severe symptoms. MEDICATIONS * Use Tylenol (acetaminophen) on a scheduled basis for the first 3-5 days. * Use Oxycodone (a narcotic) for breakthrough pain. Do not drive while taking Oxycodone. * Oxycodone will call cause constipation - drink plenty of water, and use [id number] Miralax as needed. ANESTHESIA PRECAUTIONS Anesthesia and medications given during surgery remain in your body up to 24 hours. This may slow reaction time and/or decrease coordination. FOR THE NEXT 24 HOURS: - Have a responsible person with you - Avoid any activity that requires you to be alert and coordinated - DO NOT DRIVE a motor vehicle for 24 hours or as long as you are taking opoid pain medication - Do not drink alcoholic beverages - Do not smoke unattended Patient Date Escort Date RN Date Diet: Regular Assessment: - You had perforated appendicitis - Your Xarelto was help for 2 days, and then you had a laparoscopic appendectomy with drain placement. - The drain was removed before going home - You will finish two more days of antibiotics at home Plan of Treatment: - Complete 2 more days of antibiotics at home - follow up with Dr. Arboleda in 2 weeks. Print Language: Lao Patient Instructions: Surgery Anesthesia After Stand Alone Forms: PCP List Follow-up Care: Hortencia Kolb, JERARDO [Primary Care Provider] - Lila Arboleda DO [Provider Admit Priv/Credential] - 08/02/24 10:30 am"
== END 2024-07-19 14:10 | disposition home or self-care (01) | DRG 399 ==
LOC: MS2 12:13 → ED 12:13 → MS2 20:59 → INTOOBSV 07-17 12:57
PROVIDERS: ADMIT Surgery; ATTEND Surgery